=== PATIENT | male | born 1965 | race Caucasian/White ===

== ENCOUNTER 2021-06-01 08:53 | Inpatient (IN) | payer OTHER ==
[~2021-06-01] VITALS: Ht 193 cm; Wt 227.2 kg
[2021-06-01] VITALS (185 sets, daily range): BP systolic 62–216; BP diastolic 30–185
--- NOTE | ~2021-06-01 | PROC ---
[address] [address] PROCEDURE REPORT Name: WALLACEFLORENCIA ANASTACIO Room: [address] IN M.R.#: [id number] Admission: 06/01/21 Attend Phys: Radha Hernandez MD Discharge: 06/22/21 Date of : 63 Report #: [id number] THIS REPORT FOR: cc: Rajesh Hearn Kevin E. DO [facility],Medical Records Staff ~ For GI report, please see the Provation report in Perceptive 7 content. By: 0654Medical Records Staff MIKI /SIMA
[2021-06-01 09:10] LABS: ABSOLUTE BASOPHILS 0.1 thou/uL (0.0-0.2); ABSOLUTE LYMPHOCYTES 1.9 thou/uL (0.8-5.3); ABSOLUTE MONOCYTES 1.6 thou/uL (0.0-1.2); ABSOLUTE NEUTROPHILS 13.5 thou/uL (1.6-8.1); BASOPHILS 0.7 %; EOSINOPHILS 0.2 %; HEMATOCRIT 38.3 % (42.0-52.0); HEMOGLOBIN 12.4 gm/dL (14.0-18.0); LYMPHOCYTES 11.2 %; MCH 27.5 pg (26.0-34.0); MCHC 32.5 g/dL (28.0-37.0); MCV 84.7 fL (80.0-100.0); MONOCYTES 9.1 %; NUCLEATED RBCS 0 /100WBC; PLATELET COUNT* 375 thou/uL (150-400); POLYS 78.8 %; RBC 4.52 mil/uL (4.50-6.00); RDW-CV 15.2 % (10.5-14.5); WBC 17.2 thou/uL (4.0-11.0)
[2021-06-01 09:23] LABS: CALCIUM 9.1 mg/dL (8.5-10.1); CREATININE 3.5 mg/dL (0.6-1.3); POTASSIUM 4.2 mmol/L (3.5-5.1)
[2021-06-01 09:36] LABS: ALBUMIN 2.6 g/dL (3.4-5.0); CK-MB MASS 3.9 ng/mL (<0.5-3.6); TOTAL BILIRUBIN 1.4 mg/dL (<0.1-1.0); TOTAL PROTEIN 7.2 g/dL (6.4-8.2)
[2021-06-01] MEDS ORDERED: ASA81BEC PO (10:31)
[2021-06-01] MEDS ORDERED: BACITRACIN1 EACH TOP (10:34)
[2021-06-01] MEDS ORDERED: FLEXERIL PO (10:35)
[2021-06-01] MEDS ORDERED: CETIRIZINE HCL5 MG PO (10:35)
[2021-06-01] MEDS ORDERED: DIAZEPAM 5 MG5 MG PO (10:50)
--- NOTE | 2021-06-01 10:51 | EKG ---
[place] [address] ELECTROCARDIOGRAM REPORT Name: GONSALEZFLORENCIA Room: [facility]#: [id number] Admission: 06/01/21 Attend Phys: Discharge: Date of : 63 Date of Service: 06/01/21 0857 Report #: [id number] THIS REPORT FOR: //name// [facility] ED Test Date: 2021-06-01 Test Time: 08:57:01 Pat Name: FLORENCIA GONSALEZ Department: Room: Gender: Room Maid: : 1965 Requested By: Sid Etienne Order Number: [id number] MD: Terry Robles Measurements Intervals [place] Rate: 135 P: 63 TN: 152 QRS: -49 QRSD: 116 T: 65 QT: 305 QTc: 458 Interpretive Statements Sinus tachycardia with occasional PACs Nonspecific interventricular conduction delay with left axis deviation No previous ECG available for comparison Electronically Signed On 06-01-2021 10:51:21 CDT by Terry Robles [email or web address] <ELECTRONICALLY SIGNED> By: Terry Robles MD, [facility] 06/01/21 1051 0857 0857 Terry Robles MD, [facility] /EPI
[2021-06-01 12:15] LABS: PCO2 35.2 mmHg (35.0-45.0); pH 7.346 (7.340-7.450)
[2021-06-01 12:17] LABS: PO2 264.4 mmHg (75.0-100.0)
[2021-06-01 12:47] LABS: URINE BLOOD NEGATIVE (Negative); URINE CLARITY CLEAR; URINE COLOR YELLOW; URINE GLUCOSE-RANDOM TRACE (Negative); URINE KETONES TRACE (Negative); URINE LEUKOCYTES-REFLEX NEGATIVE (Negative); URINE PROTEIN 1+ (Negative); URINE SPECIFIC GRAVITY >= 1.030 (1.005-1.030)
[2021-06-01] MEDS ORDERED: APAP W/CODEINE1 TA2 PO (12:56)
[2021-06-01] MEDS ORDERED: NORCO5 PO (12:57)
[2021-06-01] MEDS ORDERED: FUROSEMIDE 40 M40 MG PO (12:57)
[2021-06-01] MEDS ORDERED: DULCOLAX STOOL100 M1 PO (12:57)
[2021-06-01] MEDS ORDERED: NEURONTIN300 MG PO (12:57)
[2021-06-01] MEDS ORDERED: IPRATROPIUM BRO30 ML INH (12:58)
[2021-06-01] MEDS ORDERED: KEFLEX750 MG PO (12:58)
[2021-06-01] MEDS ORDERED: PRINIVIL20 MG PO (12:59)
[2021-06-01] MEDS ORDERED: SUPER THERAVIT1 EACH PO (12:59)
[2021-06-01] MEDS ORDERED: MECLIZINE HCL25 M1 PO (12:59)
[2021-06-01] MEDS ORDERED: MOBIC7.5 MG PO (12:59)
[2021-06-01] MEDS ORDERED: ONDANSETRON ODT4 MG PO (13:00)
[2021-06-01] MEDS ORDERED: EFFER-K 10 MEQ10 ME1 PO (13:01)
[2021-06-01] MEDS ORDERED: SIMVASTATIN80 MG PO (13:02)
[2021-06-01] MEDS ORDERED: TERBINAFINE HC250 MG PO (13:03)
[2021-06-01 13:20] LABS: ICTOTEST (BILI CONFIRMATORY) Negative (Negative); URINE BILIRUBIN 2+ (Negative); URINE NITRITE-REFLEX POSITIVE (Negative)
[2021-06-01 13:27] LABS: SQUAMOUS 0-3 Few /LPF (0-3); URINE RBC 0-2 Rare /HPF (0-2); URINE WBC-REFLEX None Seen /HPF (0-5)
[2021-06-01 13:28] LABS: BACTERIA-REFLEX 1-9 Few /HPF (None Seen); CASTS None Seen /LPF (None Seen); CRYSTALS None Seen /LPF (None Seen)
[2021-06-01 18:19] LABS: BE -7.8 mmol/L (-2 to +3); PCO2 36.3 mmHg (35.0-45.0); PO2 94.9 mmHg (75.0-100.0); pH 7.307 (7.340-7.450)
[2021-06-01 18:47] LABS: ABSOLUTE LYMPHOCYTES 1.3 thou/uL (0.8-5.3); LYMPHOCYTES 9.1 %
[2021-06-01 18:51] LABS: ABSOLUTE BASOPHILS 0.1 thou/uL (0.0-0.2); ABSOLUTE EOSINOPHILS 0.1 thou/uL (0.0-0.7); ABSOLUTE MONOCYTES 1.9 thou/uL (0.0-1.2); ABSOLUTE NEUTROPHILS 11.1 thou/uL (1.6-8.1); BASOPHILS 0.7 %; EOSINOPHILS 0.8 %; HEMATOCRIT 35.5 % (42.0-52.0); HEMOGLOBIN 11.6 gm/dL (14.0-18.0); MCH 28.1 pg (26.0-34.0); MCHC 32.6 g/dL (28.0-37.0); MCV 86.2 fL (80.0-100.0); MONOCYTES 13.1 %; MPV 8.1 fl. (7.2-11.1); NUCLEATED RBCS 0 /100WBC; POLYS 76.3 %; RBC 4.12 mil/uL (4.50-6.00); RDW-CV 15.6 % (10.5-14.5); WBC 14.6 thou/uL (4.0-11.0)
[2021-06-01 18:53] LABS: PLATELET COUNT* 286 thou/uL (150-400)
[2021-06-01 18:59] LABS: CALCIUM 7.5 mg/dL (8.5-10.1); CREATININE 4.2 mg/dL (0.6-1.3)
[2021-06-01 19:03] LABS: ALBUMIN 2.4 g/dL (3.4-5.0); MAGNESIUM 1.2 mg/dL (1.8-2.4); TOTAL BILIRUBIN 0.8 mg/dL (<0.1-1.0); TOTAL PROTEIN 6.1 g/dL (6.4-8.2)
[2021-06-01 19:10] LABS: INR 1.3; PROTIME 13.6 Seconds (9.20-11.50)
--- NOTE | 2021-06-01 22:17 | CON ---
[address] [address] CONSULTATION Name: FLORENCIA GONSALEZ Room: [address] IN M.R.#: [id number] Admission: 06/01/21 Attend Phys: Radha Hernandez MD Discharge: Date of : 63 Report #: [id number] THIS REPORT FOR: cc: Rajesh Hearn Kevin E. DO Pervez, Adeel MD ~ DATE OF CONSULTATION: 06/01/2021 REQUESTING PHYSICIAN: Consult has been requested by Dr. Hernandez. INDICATION FOR CONSULTATION: Ventilator management. HISTORY OF PRESENT ILLNESS: This is a 55-year-old gentleman. He is already endotracheally intubated and therefore, I do not have detailed information available. Apparently, the patient was brought here from [facility] with altered mental status, reported to have a high-grade fever and being short of breath. The patient has recently had a right knee surgery performed. The patient's axillary temperature on arrival was 102 degrees Fahrenheit. He also was hypoglycemic with a blood glucose of 30. Also, he is in shock. Currently, the patient is on high dose Levophed at 27 mcg per minute and is maintaining blood pressure with it. He is currently sedated with propofol at 40 as well. The patient is ventilating and oxygenating adequately; however, he is bronchospastic on my exam. The patient is tachycardic. He is on the ventilator and therefore is unable to provide a further history or review of systems. PAST MEDICAL HISTORY: Morbid obesity, body mass index is 61, recent right knee surgery, details not available. SOCIAL HISTORY: Unknown. FAMILY HISTORY: Unknown. HOME MEDICATIONS: Unknown. ALLERGIES: Unknown. PHYSICAL EXAMINATION: GENERAL: He is tachycardic. VITAL SIGNS: Heart rate is 120, respiratory rate was around 30, blood pressure was 100/67. He was saturating 100%. He is on a tidal volume of 650 with an AC rate of 18, PEEP is 5, 50% FiO2. He has a temperature of 37.0. HEENT: Head is normocephalic and atraumatic. Pupils are equal and reactive. There is an endotracheal tube, is in good position. NECK: Does not show raised JVP, asymmetry, mass or lymph nodes. CHEST: Symmetrical expansion on inspection and palpation. On auscultation, [place] [address] CONSULTATION Name: FLORENCIA GONSALEZ Room: [address]#: [id number] Admission: 06/01/21 Attend Phys: Radha Hernandez MD Discharge: Date of : 63 Report #: [id number] there are loud inspiratory as well as expiratory wheezes heard bilaterally. HEART: Regular, tachycardia noted. ABDOMEN: Mildly distended, nontender. EXTREMITIES: Lower extremities do show 1+ edema bilaterally. There is evidence of recent surgery and warmth on the right knee. There is evidence of chronic venous insufficiency and there are some ulcers present in the calves bilaterally. SKIN: Dry and intact. NEUROLOGIC: Did move all extremities to stimuli; however, it is limited due to sedation. DIAGNOSTIC DATA: The patient's chest x-ray is reviewed. It shows atelectasis at the right lung base. I do not see any significant pulmonary vascular congestion or infiltrate. The atelectasis was not present on the first chest x-ray and is present on the 2nd. The patient's lab work, which shows acute renal failure in [facility] reviewed. Arterial blood gas, which shows adequate oxygenation in [facility] reviewed. COVID-19 screen is negative. ASSESSMENT AND PLAN: 1. Acute respiratory failure secondary to septic shock. We will continue current ventilator settings. Continue to titrate FiO2. We may be able to decrease further. Recommend starting a fentanyl drip, also starting p.r.n. Versed. Once these are started, we may be able to cut back on propofol, if the patient remains significantly hypotensive, then I will later discontinue propofol and consider adding alternate agents if necessary. 2. Septic shock/recent knee surgery. I understand the Orthopedic Surgery is considering the knee to be the possible etiology of the sepsis. If this is the case, then while he is high risk for surgery due to septic shock, we may need to proceed. I would defer to the Orthopedic Surgery Service. Meanwhile, I agree with fluid resuscitation as it is currently underway. I understand he is receiving the 7th liter of fluid now. I will give him some albumin as well. We will switch over his antibiotics considering his renal failure to linezolid and Zosyn. 3. Bronchospasm. He is significantly tachycardic; therefore, I ordered Solu-Medrol. If heart rate is better, I will give him nebulized bronchodilators as well. 4. Morbid obesity/obstructive sleep apnea. He appears to have underlying obstructive sleep apnea. He will need a BiPAP whenever he is extubated. 5. Hypoglycemia. This is noted on admission. Recommend watching blood glucoses closely. 6. Chronic venous insufficiency. Down the line, we will consider obtaining venous Dopplers and a 2D echo as well. 7. Acute renal failure. See discussion above. 8. Hemodynamic monitoring. I would recommend placing an A-line. The patient [address] [id number] CONSULTATION Name: FLORENCIA GONSALEZ Room: [address]#: [id number] Admission: 06/01/21 Attend Phys: Radha Hernandez MD Discharge: Date of : 63 Report #: [id number] already has a central line. The patient is critically ill at this time. Total time spent providing critical care to this patient today exceeds 45 minutes. <ELECTRONICALLY SIGNED> By: Barrie Paiz MD 06/01/21 2217 1538 2022Asyeda Paiz MD /nt
[2021-06-02] VITALS (20 sets, daily range): BP systolic 84–151; BP diastolic 54–83
[2021-06-02 02:48] LABS: HEMATOCRIT 35.8 % (42.0-52.0); HEMOGLOBIN 11.4 gm/dL (14.0-18.0); MCHC 31.8 g/dL (28.0-37.0); MPV 7.8 fl. (7.2-11.1); NUCLEATED RBCS 0 /100WBC; PLATELET COUNT* 293 thou/uL (150-400); RBC 4.21 mil/uL (4.50-6.00); RDW-CV 15.7 % (10.5-14.5); WBC 11.5 thou/uL (4.0-11.0)
[2021-06-02 03:02] LABS: APTT 31.8 Seconds (25.0-31.3); INR 1.3; PROTIME 13.5 Seconds (9.20-11.50)
[2021-06-02 03:14] LABS: PHOSPHORUS* 4.2 mg/dL (2.5-4.9)
[2021-06-02 03:48] LABS: CALCIUM 8.1 mg/dL (8.5-10.1); CREATININE 3.5 mg/dL (0.6-1.3); MAGNESIUM 1.9 mg/dL (1.8-2.4); POTASSIUM 4.7 mmol/L (3.5-5.1)
[2021-06-02 04:06] LABS: ABSOLUTE LYMPHOCYTES 0.2 thou/uL (0.8-5.3); ABSOLUTE MONOCYTES 0.3 thou/uL (0.0-1.2); ABSOLUTE NEUTROPHILS 10.9 thou/uL (1.6-8.1)
[2021-06-02 04:07] LABS: ANISOCYTOSIS Occasional; PLATELET ESTIMATE ADEQUATE
[2021-06-02 08:00] LABS: PCO2 34.8 mmHg (35.0-45.0); PO2 71.3 mmHg (75.0-100.0); pH 7.417 (7.340-7.450)
--- NOTE | 2021-06-02 13:40 | 2DMMODE ---
[place] [address] 2 D/M-MODE ECHOCARDIOGRAM Name: FLORENCIA GONSALEZ Room: [address] IN [facility]#: [id number] Admission: 06/01/21 Attend Phys: Radha Hernandez, Discharge: Date of : 63 Date of Service: 06/02/21 1339 Report #: [id number] THIS REPORT FOR: cc: Rajesh Hearn,Rajesh Mack,Mitchel Helton MD [facility] ~ APPROVED REPORT Study performed: 06/02/2021 10:05:31 EXAM: Comprehensive 2D, Doppler, and color-flow Echocardiogram Patient Location: In-Patient Room #: 004 Status: routine BSA: 3.27 HR: 72 bpm BP: 84/70 mmHg Rhythm: NSR Other Information Technically limited study due to inability to position patient, patient on ventilator, body habitus. Indications Sepsis Dyspnea Echo Enhancing Agent Indication: Endocardial border delineation Agent(s) / Amount(s) Used: Optison 3 cc 2D Dimensions IVSd: 12.03 (7-11mm) LVOT Diam: 24.96 (18-24mm) LVDd: 57.80 mm PWd: 11.51 (7-11mm) Ascending Ao: 34.27 (22-36mm) LVDs: 38.43 (25-40mm) Aortic Root: 36.02 mm Volumes Left Atrial Volume (Systole) LA ESV Index: 19.30 mL/m2 Aortic Valve AoV Peak Thierno.: 1.32 m/[place] [address] 2 D/M-MODE ECHOCARDIOGRAM Name: FLORENCIA GONSALEZ Room: [address] IN [facility]#: [id number] Admission: 06/01/21 Attend Phys: Radha Hernandez, Discharge: Date of : 63 Date of Service: 06/02/21 1339 Report #: [id number] AO Peak Gr.: 6.97 mmHg LVOT Max P.52 mmHg AO Mean Gr.: 4.12 mmHg LVOT Mean P.48 mmHg LVOT Max V: 0.79 m/s AO V2 VTI: 22.68 cm LVOT Mean V: 0.58 m/s FELIPE (VTI): 3.11 cm2 LVOT V1 VTI: 14.42 cm Mitral Valve E/A Ratio: 0.70 MV Decel. Time: 310.79 ms MV E Max Thierno.: 0.51 m/s MV PHT: 90.13 ms MVA (PHT): 2.44 cm2 TDI E/Lateral E': 6.38 E/Medial E': 7.29 Medial E' Thierno.: 0.07 m/s Lateral E' Thierno.: 0.08 m/s Pulmonary Valve PV Peak Thierno.: 0.92 m/s PV Peak Gr.: 3.36 mmHg Left Ventricle The left ventricle is normal size. There is normal LV segmental wall motion. Mild concentric left ventricular hypertrophy. Left ventricular systolic function is normal. LVEF is 60-65%. Grade I - abnormal relaxation pattern. Right Ventricle The right ventricle is normal size. The right ventricular systolic function is normal. Atria The left atrium size is normal. The right atrium size is normal. Aortic Valve The aortic valve is normal in structure. No aortic regurgitation is present. There is no aortic valvular stenosis. Mitral Valve The mitral valve is normal in structure. Trace mitral regurgitation. No evidence of mitral valve stenosis. Tricuspid Valve The tricuspid valve is normal in structure. Unable to assess PA pressure. Trace [place] [address] 2 D/M-MODE ECHOCARDIOGRAM Name: FLORENCIA GONSALEZ Room: [address]#: [id number] Admission: 06/01/21 Attend Phys: Radha Hernandez, Discharge: Date of : 63 Date of Service: 06/02/21 1339 Report #: [id number] Pulmonic Valve The pulmonary valve is normal in structure. There is no pulmonic valvular regurgitation. Great Vessels The aortic root is normal in size. IVC is normal in size and collapses >50% with inspiration. Pericardium There is no pericardial effusion. Left pleural effusion. <Conclusion> The left ventricle is normal size. Mild concentric left ventricular hypertrophy. Left ventricular systolic function is normal. LVEF is 60-65%. Grade I - abnormal relaxation pattern. There is normal LV segmental wall motion. Trace mitral regurgitation. IVC is normal in size and collapses >50% with inspiration. <ELECTRONICALLY SIGNED> By: Mitchel Jones MD, FACC 06/02/21 1339 1339 1339 Mitchel Jones MD, FACC /INF
[2021-06-03] VITALS (24 sets, daily range): BP systolic 114–152; BP diastolic 90–135
[2021-06-03 04:25] LABS: ABSOLUTE LYMPHOCYTES 0.5 thou/uL (0.8-5.3); ABSOLUTE MONOCYTES 0.6 thou/uL (0.0-1.2); ABSOLUTE NEUTROPHILS 10.9 thou/uL (1.6-8.1); BASOPHILS 0.2 %; HEMATOCRIT 33.4 % (42.0-52.0); HEMOGLOBIN 10.9 gm/dL (14.0-18.0); LYMPHOCYTES 4.1 %; MCH 27.5 pg (26.0-34.0); MCHC 32.5 g/dL (28.0-37.0); MCV 84.4 fL (80.0-100.0); MONOCYTES 5.4 %; MPV 8.4 fl. (7.2-11.1); NUCLEATED RBCS 0 /100WBC; PLATELET COUNT* 283 thou/uL (150-400); POLYS 90.3 %; RBC 3.96 mil/uL (4.50-6.00); RDW-CV 15.3 % (10.5-14.5); WBC 12.1 thou/uL (4.0-11.0)
[2021-06-03 05:10] LABS: ALBUMIN 2.3 g/dL (3.4-5.0); CALCIUM 8.4 mg/dL (8.5-10.1); MAGNESIUM 2.2 mg/dL (1.8-2.4); PHOSPHORUS* 5.3 mg/dL (2.5-4.9); POTASSIUM 4.5 mmol/L (3.5-5.1); TOTAL BILIRUBIN 0.5 mg/dL (<0.1-1.0); TOTAL PROTEIN 6.8 g/dL (6.4-8.2)
[2021-06-03 05:14] LABS: CREATININE 2.5 mg/dL (0.6-1.3)
[2021-06-03 05:23] LABS: PHOSPHORUS* 5.5 mg/dL (2.5-4.9)
[2021-06-03 11:27] LABS: BE -1.6 mmol/L (-2 to +3); PCO2 39.5 mmHg (35.0-45.0); PO2 83.4 mmHg (75.0-100.0); pH 7.386 (7.340-7.450)
--- NOTE | 2021-06-03 11:43 | CON ---
[address] [address] CONSULTATION Name: FLORENCIA GONSALEZ Room: [address] IN M.R.#: [id number] Admission: 06/01/21 Attend Phys: Radha Hernandez MD Discharge: Date of : 63 Report #: [id number] THIS REPORT FOR: cc: Rajesh Hearn Kevin E. DO Khan, Abid R. MD ~ DATE OF CONSULTATION: 06/02/2021 NEPHROLOGY CONSULTATION CONSULTING PHYSICIAN: Radha Hernandez MD REASON FOR CONSULTATION: Acute kidney injury. HISTORY OF PRESENT ILLNESS: A 55-year-old gentleman who was admitted with a septic knee and septic shock, was on 2 pressors at one point and had some hypotension. I was asked to see him because his creatinine had risen from 3.5 on admission to 4.2 and he had significantly reduced urine output. He was started on antibiotic as well as vasopressor support, seen by Surgery and seems to be doing much better today. Also, he did have some hypoglycemia and responded well to dextrose and his IV fluids. He is currently off of vasopressors. His creatinine has come down somewhat to 3.5 and he has had excellent urine output. REVIEW OF SYSTEMS: Constitutional, psych, heme, eyes, ENT, respiratory, cardiac, GI, , endocrine, all negative except as documented above and as best as can be ascertained from chart review. PAST MEDICAL HISTORY: Morbid obesity, suspected obstructive sleep apnea, dyslipidemia and a presumed history of hypertension. He is on lisinopril as an outpatient. FAMILY HISTORY: Nonpertinent in this 55-year-old gentleman. SOCIAL HISTORY: Unknown if ever smoked. CURRENT MEDICATIONS: Reviewed. PHYSICAL EXAMINATION: VITAL SIGNS: Blood pressure is 139/83, pulse 103, respirations 22, temperature 37.8. GENERAL: No distress, intubated, sedated. EYES: Closed. EARS: Externally normal. CARDIOVASCULAR: [place] [address] CONSULTATION Name: FLORENCIA GONSALEZ Room: [address] IN ..#: [id number] Admission: 06/01/21 Attend Phys: Radha Hernandez MD Discharge: Date of : 63 Report #: [id number] LUNGS: Diminished. ABDOMEN: Soft, nontender. MUSCULOSKELETAL: Nontender. PSYCHIATRIC: Intubated and unable to fully evaluate at this time. LABORATORY DATA: White cell count 11.5, hemoglobin 11.4, platelets 293. Sodium 136, potassium 4.7, chloride 103, bicarbonate 19, BUN 23, creatinine 3.5, glucose 118, calcium 8.1. CK 6784. ASSESSMENT AND PLAN: 1. Acute kidney injury. Baseline creatinine is unknown. Admission creatinine was 3.5, up to 4.2. UA is noted. He is on Lasix, lisinopril, meloxicam as an outpatient, has septic knee, was on 2 vasopressors and elevated CK of 6700. 2. Septic right knee. 3. Morbid obesity. 4. Suspected obstructive sleep apnea. 5. Hypoalbuminemia with albumin of 2.6. 6. Elevated CK of 6800. Plan: Creatinine is better today. Excellent urine output. No indication for renal ultrasound at this time as it is unlikely to change clinical management. 7. Rhabdomyolysis could be secondary to propofol. No other medication is identified at this time. in the setting of a septic knee. CK will be rechecked in the morning. We will continue IV fluid. We will discontinue bicarbonate as he has a normal pH. Continue dextrose and IV fluids as he did have initial hypoglycemia. We will check lab again in the a.m. Case was discussed with ELEMENT BURNER as well as Dr. Paiz. Thank you for requesting my opinion in the care and management of this patient. <ELECTRONICALLY SIGNED> By: Val Roland MD 06/03/21 1143 1104 1305Acindy Roland MD /nt
[2021-06-04] VITALS (86 sets, daily range): BP systolic 107–177; BP diastolic 75–160
[2021-06-04 04:03] LABS: ABSOLUTE LYMPHOCYTES 0.6 thou/uL (0.8-5.3); ABSOLUTE MONOCYTES 0.8 thou/uL (0.0-1.2); ABSOLUTE NEUTROPHILS 9.6 thou/uL (1.6-8.1); EOSINOPHILS 0.1 %; HEMATOCRIT 33.5 % (42.0-52.0); HEMOGLOBIN 10.7 gm/dL (14.0-18.0); LYMPHOCYTES 5.6 %; MCH 27.2 pg (26.0-34.0); MCHC 31.9 g/dL (28.0-37.0); MCV 85.3 fL (80.0-100.0); MONOCYTES 7.5 %; MPV 8.3 fl. (7.2-11.1); NUCLEATED RBCS 0 /100WBC; PLATELET COUNT* 268 thou/uL (150-400); POLYS 86.8 %; RBC 3.93 mil/uL (4.50-6.00); RDW-CV 15.5 % (10.5-14.5)
[2021-06-04 04:12] LABS: ALBUMIN 2.2 g/dL (3.4-5.0); CREATININE 2.1 mg/dL (0.6-1.3); MAGNESIUM 2.3 mg/dL (1.8-2.4); POTASSIUM 4.4 mmol/L (3.5-5.1); TOTAL BILIRUBIN 0.3 mg/dL (<0.1-1.0); TOTAL PROTEIN 6.8 g/dL (6.4-8.2)
[2021-06-04 04:24] LABS: PREALBUMIN 11.1 mg/dL (18.0-35.7)
[2021-06-04 08:50] LABS: BE -3.3 mmol/L (-2 to +3); PCO2 39.7 mmHg (35.0-45.0); PO2 73.5 mmHg (75.0-100.0); pH 7.359 (7.340-7.450)
[2021-06-04 11:39] LABS: BE -4.4 mmol/L (-2 to +3); PO2 76.8 mmHg (75.0-100.0); pH 7.369 (7.340-7.450)
[2021-06-05] VITALS (42 sets, daily range): BP systolic 117–217; BP diastolic 73–204
[2021-06-05 06:41] LABS: ALBUMIN 2.1 g/dL (3.4-5.0); CALCIUM 8.1 mg/dL (8.5-10.1); CREATININE 1.6 mg/dL (0.6-1.3); POTASSIUM 4.8 mmol/L (3.5-5.1); TOTAL BILIRUBIN 0.4 mg/dL (<0.1-1.0); TOTAL PROTEIN 6.7 g/dL (6.4-8.2)
[2021-06-05 07:50] LABS: PLATELET ESTIMATE ADEQUATE
[2021-06-05 08:56] LABS: HEMATOCRIT 35.1 % (42.0-52.0); HEMOGLOBIN 11.2 gm/dL (14.0-18.0); MCH 27.3 pg (26.0-34.0); MCV 85.2 fL (80.0-100.0); MPV 8.2 fl. (7.2-11.1); PLATELET COUNT* 239 thou/uL (150-400); RBC 4.11 mil/uL (4.50-6.00); RDW-CV 15.6 % (10.5-14.5)
[2021-06-05 09:07] LABS: ABSOLUTE LYMPHOCYTES 0.8 thou/uL (0.8-5.3); ABSOLUTE MONOCYTES 0.4 thou/uL (0.0-1.2); ABSOLUTE NEUTROPHILS 10.6 thou/uL (1.6-8.1); WBC 11.8 thou/uL (4.0-11.0)
[2021-06-05 10:15] LABS: BE -0.1 mmol/L (-2 to +3); PCO2 41.1 mmHg (35.0-45.0); PO2 66.6 mmHg (75.0-100.0); pH 7.398 (7.340-7.450)
--- NOTE | 2021-06-05 10:31 | EKG ---
[place] [address] ELECTROCARDIOGRAM REPORT Name: FLORENCIA GONSALEZ Room: [address] ADM IN M.R.#: [id number] Admission: 06/01/21 Attend Phys: Radha Hernandez, Discharge: Date of : 63 Date of Service: 06/04/21 1256 Report #: [id number] THIS REPORT FOR: //name// [facility] Test Date: 2021-06-04 Test Time: 12:56:24 Pat Name: FLORENCIA GONSALEZ Department: Room: [address] Gender: M Nurse Practitioner Physician Assistant: CLARENCE : 1965 Requested By: Angelo South Order Number: [id number] Reading MD: Arden Malhotra Measurements Intervals [place] Rate: 73 P: 49 MO: 185 QRS: -26 QRSD: 120 T: 4 QT: 409 QTc: 451 Interpretive Statements Sinus rhythm Atrial premature complexes Nonspecific intraventricular conduction delay Compared to ECG 06/01/2021 08:57:01 Atrial premature complex(es) now present Sinus tachycardia no longer present Left-axis deviation no longer present Electronically Signed On 06-05-2021 10:31:15 CDT by Arden Malhotra [email or web address] <ELECTRONICALLY SIGNED> By: Arden Malhotra MD, FACC 06/05/21 1031 1256 1256 Arden Malhotra MD, [facility] /EPI
[2021-06-06] VITALS (44 sets, daily range): BP systolic 95–191; BP diastolic 62–130
[2021-06-06 05:27] LABS: ABSOLUTE MONOCYTES 0.7 thou/uL (0.0-1.2); BASOPHILS 0.4 %; HEMATOCRIT 37.6 % (42.0-52.0); HEMOGLOBIN 11.8 gm/dL (14.0-18.0); LYMPHOCYTES 9.3 %; MCH 26.6 pg (26.0-34.0); MCHC 31.5 g/dL (28.0-37.0); MCV 84.5 fL (80.0-100.0); MONOCYTES 6.8 %; MPV 7.9 fl. (7.2-11.1); NUCLEATED RBCS 1 /100WBC; PLATELET COUNT* 238 thou/uL (150-400); POLYS 83.5 %; RBC 4.44 mil/uL (4.50-6.00); RDW-CV 16.2 % (10.5-14.5); WBC 10.8 thou/uL (4.0-11.0)
[2021-06-06 05:44] LABS: CALCIUM 8.5 mg/dL (8.5-10.1); CREATININE 1.2 mg/dL (0.6-1.3); POTASSIUM 4.5 mmol/L (3.5-5.1)
[2021-06-06 09:45] LABS: BE -1.1 mmol/L (-2 to +3); PCO2 38.7 mmHg (35.0-45.0); pH 7.401 (7.340-7.450)
--- NOTE | 2021-06-06 10:06 | EKG ---
[place] [address] ELECTROCARDIOGRAM REPORT Name: FLORENCIA GONSALEZ Room: [address] ADM IN M.R.#: [id number] Admission: 06/01/21 Attend Phys: Radha Hernandez, Discharge: Date of : 63 Date of Service: 06/04/21 0109 Report #: [id number] THIS REPORT FOR: //name// [facility] Test Date: 2021-06-04 Test Time: 01:09:18 Pat Name: FLORENCIA GONSALEZ Department: Room: [address] Gender: M Auxiliary Engineer: [id number] : 1965 Requested By: Radha Hernandez Order Number: [id number] Reading MD: Arden Malhotra Measurements Intervals [place] Rate: 78 P: 51 WI: 189 QRS: -26 QRSD: 125 T: 4 QT: 407 QTc: 464 Interpretive Statements Sinus rhythm Atrial premature complex Baseline wander in lead(s) V6 Compared to ECG 06/01/2021 08:57:01 Atrial premature complex(es) now present Sinus tachycardia no longer present Electronically Signed On 06-06-2021 10:06:13 CDT by Arden Malhotra [email or web address] <ELECTRONICALLY SIGNED> By: Arden Malhotra MD, FAC 06/06/21 1006 8 8 Arden Malhotra MD, [facility] /EPI
--- NOTE | 2021-06-06 10:07 | EKG ---
[place] [address] ELECTROCARDIOGRAM REPORT Name: FLORENCIA GONSALEZ Room: [address] ADM IN M.R.#: [id number] Admission: 06/01/21 Attend Phys: Radha Hernandez, Discharge: Date of : 63 Date of Service: 06/04/21 0112 Report #: [id number] THIS REPORT FOR: //name// [facility] Test Date: 2021-06-04 Test Time: 01:12:17 Pat Name: FLORENCIA GONSALEZ Department: Room: [address] Gender: M Wind Development Director: JUANI : 1965 Requested By: Radha Hernandez Order Number: [id number] Reading MD: Arden Malhotra Measurements Intervals [place] Rate: 76 P: 53 SC: 188 QRS: -24 QRSD: 126 T: 5 QT: 416 QTc: 468 Interpretive Statements Sinus rhythm Multiple premature complexes, vent & supraven Compared to ECG 06/04/2021 01:09:18 pvc now seen Electronically Signed On 06-06-2021 10:07:26 CDT by Arden Malhotra [email or web address] <ELECTRONICALLY SIGNED> By: Arden Malhotra MD, [facility] 06/06/21 1007 011 1 Arden Malhotra MD, [facility] /EPI
--- NOTE | 2021-06-06 10:08 | EKG ---
[place] [address] ELECTROCARDIOGRAM REPORT Name: FLORENCIA GONSALEZ Room: [address] ADM IN M.R.#: [id number] Admission: 06/01/21 Attend Phys: Radha Hernandez, Discharge: Date of : 63 Date of Service: 06/04/212015 Report #: [id number] THIS REPORT FOR: //name// [facility] Test Date: 2021-06-04 Test Time: 20:16:01 Pat Name: FLORENCIA GONSALEZ Department: Room: [address] Gender: M Wireless Manager: [id number] : 1965 Requested By: Radha Hernandez Order Number: [id number] Reading MD: Arden Malhotra Measurements Intervals [place] Rate: 54 P: 53 RI: 184 QRS: -13 QRSD: 118 T: 12 QT: 432 QTc: 410 Interpretive Statements Sinus bradycardia Atrial premature complex Baseline wander in lead(s) I,III,aVL Compared to ECG 06/04/2021 12:56:24 no change Electronically Signed On 06-06-2021 10:08:27 CDT by Arden Malhotra [email or web address] <ELECTRONICALLY SIGNED> By: Arden Malhotra MD, FACC 06/06/21 1008 15 15 Arden Malhotra MD, FAC /EPI
--- NOTE | 2021-06-06 10:18 | EKG ---
[place] [address] ELECTROCARDIOGRAM REPORT Name: WALLACEFLORENCIAKARYN CHAVES Room: [address] ADM IN M.R.#: [id number] Admission: 06/01/21 Attend Phys: Radha Hernandez, Discharge: Date of : 63 Date of Service: 06/06/21 0954 Report #: [id number] THIS REPORT FOR: //name// [facility] Test Date: 2021-06-06 Test Time: 09:54:37 Pat Name: FLORENCIA GONSALEZ Department: Room: [address] Gender: Awilda Mems Device Scientist: MUNA : 1965 Requested By: Arden Malhotra Order Number: [id number] Jayne MD: Arden Malhotra Measurements Intervals [place] Rate: 90 P: 49 UT: 170 QRS: -31 QRSD: 116 T: 4 QT: 416 QTc: 509 Interpretive Statements Sinus 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
--- NOTE | 2021-06-06 15:48 | CON ---
[address] [address] CONSULTATION Name: FLORENCIA GONSALEZ Room: [address] IN M.Jimena.#: [id number] Admission: 06/01/21 Attend Phys: Radha Hernandez MD Discharge: Date of : 63 Report #: [id number] THIS REPORT FOR: cc: Rajesh Hearn,Arden Bermeo MD [facility] ~ cc: Rajesh Hearn DO DATE OF CONSULTATION: 06/04/2021 CARDIOLOGY CONSULTATION HISTORY OF PRESENT ILLNESS: The patient is a 55-year-old black male who I was asked to see in the ICU today after he was noted to have an abnormal ECG. The history is obtained from the current chart. There are no old records available. There are no family members available. The patient is currently sedated on the ventilator. He was brought to the Emergency Room by paramedics 4 days ago. He had been in assisted living after having surgery done on his right knee. He was confused and running fever. After admission, he was intubated. Central line and arterial line was placed. He was noted to have an abnormal ECG and Cardiology consultation was requested. PAST MEDICAL HISTORY: Significant for high blood pressure, high cholesterol, chronic kidney disease, morbid obesity. MEDICATIONS: On admission included aspirin, Flexeril, Valium, Lasix, Neurontin, lisinopril, simvastatin. ALLERGIES: He has no known drug allergies. FAMILY HISTORY: Cannot be obtained. SOCIAL HISTORY: Unknown at this time. PHYSICAL EXAMINATION: GENERAL: Revealed a large, obese black male, lying in bed, on the ventilator. VITAL SIGNS: He had a blood pressure of 130/70, pulse is 80 and regular. HEENT: He was anicteric. Conjunctivae pink. Mucous membranes moist. NECK: Veins difficult to assess due to obesity. CHEST: Clear to auscultation. CARDIAC: Irregular rhythm. Occasional prematurity. ABDOMEN: Obese. EXTREMITIES: Had trace edema. Dorsalis pedis pulse 2+ bilaterally. SKIN: Cool and dry. NEUROLOGIC: [place] [address] CONSULTATION Name: FLORENCIA GONSALEZ Room: [address]#: [id number] Admission: 06/01/21 Attend Phys: Radha Hernandez MD Discharge: Date of : 63 Report #: [id number] LABORATORY DATA: His ECG on admission showed sinus tachycardia, occasional PAC and PVC, but no significant ST-T wave changes. He had an echocardiogram this admission showed normal left ventricular function. His lab work on admission, BUN 35, creatinine 2.1. His albumin is 2.2. High sensitivity troponin 56. BNP 716. White blood cell count 11.0, hematocrit 33.5. IMPRESSION AND RECOMMENDATIONS: 1. PACs and PVCs. I would correct electrolytes. I would not recommend medications at this time. 2. Hypotension. The patient on pressors. 3. Respiratory distress. The patient is intubated. 4. Morbid obesity. 5. Hypertension. I would hold blood pressure medications at this time. 6. Hyperlipidemia. The patient is on a statin drug. 7. Acute kidney injury. The patient followed by Nephrology. <ELECTRONICALLY SIGNED> By: Arden Malhotra MD, FACC 06/06/21 1548 1119 [id number] Genoveva Malhotra MD, FACC /nt
[2021-06-07] VITALS (29 sets, daily range): BP systolic 120–211; BP diastolic 78–172
[2021-06-07 08:19] LABS: ABSOLUTE EOSINOPHILS 0.2 thou/uL (0.0-0.7); ABSOLUTE LYMPHOCYTES 2.2 thou/uL (0.8-5.3); ABSOLUTE MONOCYTES 1.7 thou/uL (0.0-1.2); ABSOLUTE NEUTROPHILS 7.9 thou/uL (1.6-8.1); BASOPHILS 0.3 %; EOSINOPHILS 1.9 %; HEMATOCRIT 38.6 % (42.0-52.0); HEMOGLOBIN 12.2 gm/dL (14.0-18.0); LYMPHOCYTES 18.5 %; MCH 27.5 pg (26.0-34.0); MCHC 31.5 g/dL (28.0-37.0); MCV 87.1 fL (80.0-100.0); MONOCYTES 13.9 %; MPV 7.8 fl. (7.2-11.1); NUCLEATED RBCS 1 /100WBC; PLATELET COUNT* 218 thou/uL (150-400); POLYS 65.4 %; RBC 4.43 mil/uL (4.50-6.00); RDW-CV 15.9 % (10.5-14.5); WBC 12.1 thou/uL (4.0-11.0)
[2021-06-07 08:42] LABS: ALBUMIN 2.1 g/dL (3.4-5.0); CALCIUM 8.4 mg/dL (8.5-10.1); CREATININE 1.2 mg/dL (0.6-1.3); POTASSIUM 4.2 mmol/L (3.5-5.1); TOTAL BILIRUBIN 0.5 mg/dL (<0.1-1.0); TOTAL PROTEIN 6.3 g/dL (6.4-8.2)
[2021-06-08] VITALS (20 sets, daily range): BP systolic 123–161; BP diastolic 60–96
[2021-06-08 03:33] LABS: ABSOLUTE EOSINOPHILS 0.2 thou/uL (0.0-0.7); ABSOLUTE LYMPHOCYTES 1.8 thou/uL (0.8-5.3); ABSOLUTE MONOCYTES 1.5 thou/uL (0.0-1.2); ABSOLUTE NEUTROPHILS 8.1 thou/uL (1.6-8.1); BASOPHILS 0.3 %; EOSINOPHILS 1.4 %; HEMATOCRIT 36.7 % (42.0-52.0); HEMOGLOBIN 11.7 gm/dL (14.0-18.0); LYMPHOCYTES 15.2 %; MCH 26.9 pg (26.0-34.0); MCHC 31.8 g/dL (28.0-37.0); MCV 84.7 fL (80.0-100.0); MONOCYTES 12.8 %; MPV 7.7 fl. (7.2-11.1); NUCLEATED RBCS 1 /100WBC; PLATELET COUNT* 229 thou/uL (150-400); POLYS 70.3 %; RBC 4.34 mil/uL (4.50-6.00); RDW-CV 15.8 % (10.5-14.5); WBC 11.5 thou/uL (4.0-11.0)
[2021-06-08 03:53] LABS: ALBUMIN 1.9 g/dL (3.4-5.0); CALCIUM 8.1 mg/dL (8.5-10.1); MAGNESIUM 1.5 mg/dL (1.8-2.4); POTASSIUM 4.1 mmol/L (3.5-5.1); TOTAL BILIRUBIN 0.4 mg/dL (<0.1-1.0); TOTAL PROTEIN 5.8 g/dL (6.4-8.2)
[2021-06-09 00:09] VITALS: BP 125/69
[2021-06-09 04:02] VITALS: BP 134/60
[2021-06-09 04:29] LABS: HEMATOCRIT 37.7 % (42.0-52.0); HEMOGLOBIN 12.2 gm/dL (14.0-18.0); MCH 27.4 pg (26.0-34.0); MCHC 32.3 g/dL (28.0-37.0); MCV 84.7 fL (80.0-100.0); MPV 7.9 fl. (7.2-11.1); NUCLEATED RBCS 1 /100WBC; PLATELET COUNT* 271 thou/uL (150-400); RBC 4.45 mil/uL (4.50-6.00); RDW-CV 15.6 % (10.5-14.5); WBC 12.5 thou/uL (4.0-11.0)
[2021-06-09 05:18] LABS: ALBUMIN 2.1 g/dL (3.4-5.0); CALCIUM 8.3 mg/dL (8.5-10.1); MAGNESIUM 1.8 mg/dL (1.8-2.4); POTASSIUM 3.3 mmol/L (3.5-5.1); TOTAL BILIRUBIN 0.8 mg/dL (<0.1-1.0); TOTAL PROTEIN 6.3 g/dL (6.4-8.2)
[2021-06-09 05:59] LABS: ABSOLUTE EOSINOPHILS 0.1 thou/uL (0.0-0.7); ABSOLUTE LYMPHOCYTES 3.3 thou/uL (0.8-5.3); ABSOLUTE MONOCYTES 1.5 thou/uL (0.0-1.2); ABSOLUTE NEUTROPHILS 7.6 thou/uL (1.6-8.1); ANISOCYTOSIS 1+; PLATELET ESTIMATE ADEQUATE; POIKILOCYTOSIS 1+
[2021-06-09 08:00] VITALS: BP 108/50
[2021-06-09 12:14] VITALS: BP 124/72
[2021-06-09 15:27] VITALS: BP 124/80
[2021-06-09 20:54] VITALS: BP 118/72
[2021-06-10] VITALS (12 sets, daily range): BP systolic 110–142; BP diastolic 74–88
[2021-06-10 04:13] LABS: ABSOLUTE BASOPHILS 0.1 thou/uL (0.0-0.2); ABSOLUTE EOSINOPHILS 0.2 thou/uL (0.0-0.7); ABSOLUTE LYMPHOCYTES 2.6 thou/uL (0.8-5.3); ABSOLUTE MONOCYTES 1.4 thou/uL (0.0-1.2); BASOPHILS 0.9 %; EOSINOPHILS 1.4 %; HEMATOCRIT 34.2 % (42.0-52.0); HEMOGLOBIN 11.3 gm/dL (14.0-18.0); LYMPHOCYTES 19.6 %; MCH 27.8 pg (26.0-34.0); MCHC 33.1 g/dL (28.0-37.0); MONOCYTES 10.8 %; MPV 7.6 fl. (7.2-11.1); NUCLEATED RBCS 1 /100WBC; PLATELET COUNT* 271 thou/uL (150-400); POLYS 67.3 %; RBC 4.07 mil/uL (4.50-6.00); RDW-CV 15.9 % (10.5-14.5); WBC 13.4 thou/uL (4.0-11.0)
[2021-06-10 04:32] LABS: ALBUMIN 1.9 g/dL (3.4-5.0); POTASSIUM 3.8 mmol/L (3.5-5.1); TOTAL BILIRUBIN 0.7 mg/dL (<0.1-1.0); TOTAL PROTEIN 6.1 g/dL (6.4-8.2)
[2021-06-10 18:27] LABS: CALCIUM 8.5 mg/dL (8.5-10.1); CREATININE 0.9 mg/dL (0.6-1.3); MAGNESIUM 1.8 mg/dL (1.8-2.4)
[2021-06-10 18:28] LABS: POTASSIUM 4.8 mmol/L (3.5-5.1)
[2021-06-11 04:01] VITALS: BP 150/78
[2021-06-11 08:00] VITALS: BP 128/75
[2021-06-11 12:00] VITALS: BP 155/89
[2021-06-11 16:00] VITALS: BP 119/74
[2021-06-11 20:09] VITALS: BP 152/77
[2021-06-12 00:32] VITALS: BP 144/64
[2021-06-12 04:17] VITALS: BP 159/72
[2021-06-12 12:00] VITALS: BP 141/87
[2021-06-12 16:00] VITALS: BP 173/74
[2021-06-12 20:29] VITALS: BP 151/80
[2021-06-13] VITALS (8 sets, daily range): BP systolic 137–168; BP diastolic 50–91
[2021-06-13 04:10] LABS: HEMATOCRIT 26.8 % (42.0-52.0); MCH 28.3 pg (26.0-34.0); MCHC 32.6 g/dL (28.0-37.0); RBC 3.08 mil/uL (4.50-6.00); RDW-CV 16.2 % (10.5-14.5); WBC 23.4 thou/uL (4.0-11.0)
[2021-06-13 04:29] LABS: HEMOGLOBIN 8.7 gm/dL (14.0-18.0)
[2021-06-13 04:37] LABS: ALBUMIN 2.1 g/dL (3.4-5.0); CALCIUM 7.9 mg/dL (8.5-10.1); CREATININE 0.9 mg/dL (0.6-1.3); MAGNESIUM 1.4 mg/dL (1.8-2.4); POTASSIUM 3.6 mmol/L (3.5-5.1); TOTAL BILIRUBIN 0.4 mg/dL (<0.1-1.0); TOTAL PROTEIN 6.2 g/dL (6.4-8.2)
[2021-06-13 11:28] LABS: HEMOGLOBIN 8.3 gm/dL (14.0-18.0); MCH 27.9 pg (26.0-34.0); MCHC 32.1 g/dL (28.0-37.0); MPV 7.7 fl. (7.2-11.1); RBC 2.99 mil/uL (4.50-6.00); RDW-CV 16.3 % (10.5-14.5); WBC 19.9 thou/uL (4.0-11.0)
--- NOTE | 2021-06-13 11:33 | EKG ---
[place] [address] ELECTROCARDIOGRAM REPORT Name: FLORENCIA GONSALEZ Room: [address] ADM IN M.R.#: [id number] Admission: 06/01/21 Attend Phys: Radha Hernandez, Discharge: Date of : 63 Date of Service: 06/10/211701 Report #: [id number] THIS REPORT FOR: //name// [facility] Test Date: 2021-06-10 Test Time: 17:02:26 Pat Name: FLORENCIA GONSALEZ Department: Room: [address] Gender: M Skin Grader: : 1965 Requested By: Radha Hernandez Order Number: [id number] Reading MD: Terry Robles Measurements Intervals [place] Rate: 163 P: 0 [place]: 47 QRS: -40 QRSD: 106 T: 240 QT: 288 QTc: 475 Interpretive Statements SVT at a rate of 163 with rare PVCs Compared to ECG 06/06/2021 09:54:37 Sinus rhythm no longer present Myocardial infarct finding still present Electronically Signed On 06-13-2021 11:33:13 CDT by Terry Robles [email or web address] <ELECTRONICALLY SIGNED> By: Terry Robles MD, [facility] 06/13/21 1133 01 170 Terry Rboles MD, [facility] /EPI
--- NOTE | 2021-06-13 11:36 | EKG ---
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 : 1965 Requested By: Marisela Barksdale Order Number: [id number] Reading MD: Terry Robles Measurements Intervals [place] Rate: 102 P: 50 MD: 165 QRS: -25 QRSD: 104 T: 107 QT: 334 QTc: 436 Interpretive Statements Fast sinus arrhythmia Probable left atrial enlargement Abnormal R-wave progression, late transition Inferior infarct, old Compared to ECG 06/10/2021 17:02:26 Sinus tachycardia no longer present Myocardial infarct finding still present Electronically Signed On 06-13-2021 11:36:14 CDT by Terry Robles [email or web address] <ELECTRONICALLY SIGNED> By: Terry Robles MD, FAC 06/13/21 1136 1018 1018 Terry Robles MD, [facility] /EPI
--- NOTE | 2021-06-13 12:53 | EKG ---
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 : 1965 Requested By: Marisela Barksdale Order Number: [id number] Reading MD: Mitchel Jones Measurements Intervals [place] Rate: 74 P: 31 DE: 179 QRS: -34 QRSD: 103 T: 38 QT: 448 QTc: 497 Interpretive Statements Sinus rhythm Atrial premature complex Inferior infarct, old Compared to ECG 06/11/2021 10:18:33 Atrial premature complex(es) now present Sinus arrhythmia no longer present Myocardial infarct finding still present Electronically Signed On 06-13-2021 12:53:35 CDT by Mitchel Jones [email or web address] <ELECTRONICALLY SIGNED> By: Mitchel Jones MD, FACC 06/13/21 1253 1105 1105 Mitchel Jones MD, FACC /EPI
[2021-06-13 16:49] LABS: HEMATOCRIT 26.5 % (42.0-52.0); HEMOGLOBIN 8.5 gm/dL (14.0-18.0); MCH 28.1 pg (26.0-34.0); MCHC 32.1 g/dL (28.0-37.0); MCV 87.3 fL (80.0-100.0); MPV 7.8 fl. (7.2-11.1); RBC 3.04 mil/uL (4.50-6.00); RDW-CV 16.3 % (10.5-14.5); WBC 20.1 thou/uL (4.0-11.0)
[2021-06-14 04:13] VITALS: BP 115/62
[2021-06-14 04:26] LABS: HEMOGLOBIN 8.1 gm/dL (14.0-18.0); MCV 88.6 fL (80.0-100.0)
[2021-06-14 04:29] LABS: HEMATOCRIT 25.6 % (42.0-52.0); MCH 28.2 pg (26.0-34.0); MCHC 31.9 g/dL (28.0-37.0); MPV 8.1 fl. (7.2-11.1); RBC 2.89 mil/uL (4.50-6.00); RDW-CV 16.5 % (10.5-14.5); WBC 19.9 thou/uL (4.0-11.0)
[2021-06-14 04:44] LABS: ALBUMIN 2.1 g/dL (3.4-5.0); CREATININE 0.8 mg/dL (0.6-1.3); MAGNESIUM 1.5 mg/dL (1.8-2.4); POTASSIUM 3.3 mmol/L (3.5-5.1); TOTAL BILIRUBIN 0.4 mg/dL (<0.1-1.0); TOTAL PROTEIN 6.1 g/dL (6.4-8.2)
[2021-06-14 08:55] VITALS: BP 113/59
[2021-06-14 16:00] VITALS: BP 112/59
[2021-06-14 20:44] VITALS: BP 118/66
[2021-06-14 23:47] VITALS: BP 125/59
[2021-06-15 03:44] VITALS: BP 141/65
[2021-06-15 04:58] LABS: HEMOGLOBIN 7.8 gm/dL (14.0-18.0); MCV 88.4 fL (80.0-100.0); WBC 13.4 thou/uL (4.0-11.0)
[2021-06-15 05:02] LABS: MCH 28.7 pg (26.0-34.0); MCHC 32.4 g/dL (28.0-37.0); MPV 8.5 fl. (7.2-11.1); RBC 2.71 mil/uL (4.50-6.00); RDW-CV 16.4 % (10.5-14.5)
[2021-06-15 05:37] LABS: ALBUMIN 2.1 g/dL (3.4-5.0); CALCIUM 7.8 mg/dL (8.5-10.1); CREATININE 0.8 mg/dL (0.6-1.3); MAGNESIUM 1.5 mg/dL (1.8-2.4); POTASSIUM 3.8 mmol/L (3.5-5.1); TOTAL BILIRUBIN 0.4 mg/dL (<0.1-1.0); TOTAL PROTEIN 6.2 g/dL (6.4-8.2)
[2021-06-15 08:00] VITALS: BP 131/74
--- NOTE | 2021-06-15 08:41 | EEG ---
[address] [address] EEG STUDY REPORT Name: FLORENCIA GONSALEZ Room: [address] IN M.R.#: [id number] Admission: 06/01/21 Attend Phys: Radha Hernandez MD Discharge: Date of : 63 Report #: [id number] THIS REPORT FOR: cc: Rajesh Hearn Kevin E. DO Khosla,Tim Linton MD ~ DATE OF SERVICE: 06/07/2021 This patient is being evaluated for altered mental status. EEG was done by placing the electrode by standard 10-20 system of electrode placement. Background activity in this patient's EEG is poorly formed and it appeared to be about 5-6 Hz and 15 microvolt. Photic stimulation is unremarkable. Throughout the record, no active epileptiform activity was noticed. IMPRESSION: This is a severely abnormal EEG because it is disorganized and poorly formed. That is a nonspecific abnormality which can occur with encephalopathy, effect of psychotropic medication, etc. Clinical correlation is recommended. <ELECTRONICALLY SIGNED> By: Tim Carl MD 06/15/21 0841 1434 1528Tim Carl MD /nt
--- NOTE | 2021-06-15 08:41 | CON ---
[address] [address] CONSULTATION Name: FLORENCIA GONSALEZ Room: [address] IN M.R.#: [id number] Admission: 06/01/21 Attend Phys: Radha Hernandez MD Discharge: Date of : 63 Report #: [id number] THIS REPORT FOR: cc: Rajesh Hearn Kevin E. DO Khosla, Parveen K. MD ~ DATE OF CONSULTATION: 06/06/2021 HISTORY OF PRESENT ILLNESS: This is a 55-year-old male patient who was evaluated by me for altered mental status. I talked to the nurse and reviewed the patient's record. This patient presently is being treated for septic shock. He suffered a knee injury. He went to the rehab and then had an infection and was admitted there. He also has C. difficile colitis and apparently has multiple other issues going on. His GFR was low, but it is becoming better. He became agitated and confused as I can tell from the chart and by talking to the nurses. He is being followed by multiple consultants during this admission. REVIEW OF SYSTEMS: A 14-point review of system was carried out. Apparently, he has acute renal failure. He had an infection of the right knee. He was admitted with profound hypotension, hypoxia as per my review of the record and H and P. Record indicates his blood sugar was about 30 when he came in and he had a high temperature. Even when he was admitted, he had altered mental status. He also had shortness of breath at that time. REVIEW OF SYSTEMS: A 14-point review of systems are from the record. He was on ventilator, but now he has been pretty sick. His kidney function appears to have improved. This is all the relevant 14-point review of systems I can get. PAST MEDICAL HISTORY: The patient appeared to be significant for hypertension. FAMILY HISTORY: Unavailable. SOCIAL HISTORY: One of the records says that the patient does not have a history of alcohol or substance abuse. PHYSICAL EXAMINATION: Limited. He is on Precedex drip. He did not respond to me at all. His pupils are small, but did not react. He has no reflexes. He has no meningeal sign. Thus, all the neurological examination is possible. He is a very well-developed individual. VITAL SIGNS: His blood pressure is maintained now, it is 156/99, pulse is 85. LABORATORY DATA: His white count is 10.8. GFR is back to normal. His ____ is also normal. IMPRESSION AND PLAN: This patient most likely is encephalopathic. He has [address] [place] [address] CONSULTATION Name: FLORENCIA GONSALEZ Room: [address] ADM IN .R.#: [id number] Admission: 06/01/21 Attend Phys: Radha Hernandez MD Discharge: Date of : 63 Report #: [id number] numerous problems which can cause encephalopathy. We will get an EEG done, but if he is considered stable by other consultants, I think it will be desirable to get a CT scan of the head also done because no imaging studies are available. I will try to reach the family. Thank you very much for this referral. <ELECTRONICALLY SIGNED> By: Tim Carl MD 06/15/21 0841 1927 2315Tim Carl MD /nt
[2021-06-15 12:00] VITALS: BP 127/59
[2021-06-15 16:00] VITALS: BP 137/71
[2021-06-15 20:30] VITALS: BP 133/74
[2021-06-16] VITALS: BP 110/41
[2021-06-16 04:00] VITALS: BP 112/47
[2021-06-16 07:25] LABS: HEMATOCRIT 23.2 % (42.0-52.0); HEMOGLOBIN 7.7 gm/dL (14.0-18.0); MCHC 33.3 g/dL (28.0-37.0); MCV 87.1 fL (80.0-100.0); MPV 7.3 fl. (7.2-11.1); RBC 2.66 mil/uL (4.50-6.00); RDW-CV 17.8 % (10.5-14.5); WBC 9.2 thou/uL (4.0-11.0)
[2021-06-16 07:37] LABS: ANION GAP < 0 mmol/L (7-16); BUN 6 mg/dL (7-18); CALCIUM 8.1 mg/dL (8.5-10.1); CHLORIDE 106 mmol/L (98-107); CO2 31 mmol/L (21-32); CREATININE 0.8 mg/dL (0.6-1.3); GLUCOSE 104 mg/dL (70-99); MAGNESIUM 1.5 mg/dL (1.8-2.4); POTASSIUM 3.6 mmol/L (3.5-5.1); SODIUM 136 mmol/L (136-145)
[2021-06-16 12:11] VITALS: BP 123/63
--- NOTE | 2021-06-16 12:26 | TEE ---
[place] [address] TRANSESOPHAGEAL ECHOCARDIOGRAM Name: FLORENCIA MONTALVO Room: [address] IN [facility]#: [id number] Admission: 06/01/21 Attend Phys: Radha Hernandez, Discharge: Date of : 63 Date of Service: 06/16/21 1226 Report #: [id number] THIS REPORT FOR: cc: Rajesh Hearn Kevin E. DO Liston, Michael J. MD [facility] ~ APPROVED REPORT Study performed: 06/16/2021 09:26:28 EXAM: Transesophageal Echocardiogram Patient Location: In-Patient Room #: [facility] Status: routine BSA: 3.27 HR: 82 bpm BP: 127/58 mmHg Rhythm: NSR Other Information Study Quality: Good Indications Septic, R/O valvular vegetation Echo Enhancing Agent Indication: Rule out Shunt Agent(s) / Amount(s) Used: Agitated Saline 10 cc Procedure After obtaining informed consent, patient underwent transesophageal echo in the Bedside. Type of Sedation : Conscious Sedation Sedation was administered by Moira Montalvo RN. Sedation start time: 939 Case end Time: 954 Sedation was achieved intravenously with: Versed (4) Fentanyl (100) Transesophageal probe was inserted and advanced into esophagus without difficulty by Mitchel Jones MD, [facility]. Echo enhancement indication: R/O Septal defect. Echo enhancement agent administered: Agitated Saline The ASMITA was performed without complications. Throughout the procedure, the blood pressure, pulse oximetry, cardiac rhythm, [place] [address] TRANSESOPHAGEAL ECHOCARDIOGRAM Name: WALLACEFLORENCIA CHAVES Room: [address]#: [id number] Admission: 06/01/21 Attend Phys: Radha Hernandez, Discharge: Date of : 63 Date of Service: 06/16/21 1226 Report #: [id number] The patient tolerated the procedure without adverse effects. Recovery from conscious sedation was uneventful and vital signs were stable. Left Ventricle The left ventricle is normal size. There is normal LV segmental wall motion. There is normal left ventricular wall thickness. Left ventricular systolic function is normal. LVEF is 55-60%. Right Ventricle The right ventricle is normal size. The right ventricular systolic function is normal. Atria The left atrium size is normal. Left atrial appendage not well seen. Left atrium is not well visualized. Left atrium is at the upper limits of normal. The interatrial septum is intact with no evidence for an atrial septal defect. The right atrium size is normal. Aortic Valve The aortic valve is normal in structure. No aortic regurgitation is present. There is no aortic valvular stenosis. Mitral Valve The mitral valve is normal in structure. There is no mitral valve regurgitation noted. No evidence of mitral valve stenosis. Tricuspid Valve The tricuspid valve is normal in structure. There is no tricuspid valve regurgitation noted. Pulmonic Valve Pulmonic valve is not well visualized. Great Vessels The aortic root is normal in size. Pericardium There is no pericardial effusion. <Conclusion> The left ventricle is normal size. There is normal left ventricular wall thickness. Left ventricular systolic function is normal. LVEF is 55-60%. There is normal LV [place] [address] TRANSESOPHAGEAL ECHOCARDIOGRAM Name: WALLACEFLORENCIA ANASTACIO Room: [address] IN ..#: [id number] Admission: 06/01/21 Attend Phys: Radha Hernandez, Discharge: Date of : 63 Date of Service: 06/16/211225 Report #: [id number] The interatrial septum is intact with no evidence for an atrial septal defect. No valvular vegetations seen. <ELECTRONICALLY SIGNED> By: Mitchel Jones MD, FACC 06/16/211225 25 25 Mitchel Jones MD, FACC /INF
[2021-06-16 16:40] VITALS: BP 100/39
[2021-06-16 20:00] VITALS: BP 132/75
[2021-06-17] VITALS (7 sets, daily range): BP systolic 100–134; BP diastolic 38–69
[2021-06-18 04:31] VITALS: BP 105/69
[2021-06-18 08:00] VITALS: BP 144/57
[2021-06-18 09:33] LABS: ABSOLUTE EOSINOPHILS 0.2 thou/uL (0.0-0.7); ABSOLUTE LYMPHOCYTES 1.9 thou/uL (0.8-5.3); ABSOLUTE MONOCYTES 0.7 thou/uL (0.0-1.2); ABSOLUTE NEUTROPHILS 4.7 thou/uL (1.6-8.1); BASOPHILS 0.6 %; EOSINOPHILS 2.6 %; HEMATOCRIT 28.1 % (42.0-52.0); HEMOGLOBIN 8.9 gm/dL (14.0-18.0); LYMPHOCYTES 24.6 %; MCH 27.8 pg (26.0-34.0); MCHC 31.9 g/dL (28.0-37.0); MCV 87.4 fL (80.0-100.0); MONOCYTES 9.9 %; MPV 7.4 fl. (7.2-11.1); NUCLEATED RBCS 0 /100WBC; PLATELET COUNT* 238 thou/uL (150-400); POLYS 62.3 %; RBC 3.21 mil/uL (4.50-6.00); RDW-CV 17.8 % (10.5-14.5); WBC 7.6 thou/uL (4.0-11.0)
[2021-06-18 09:40] LABS: CALCIUM 8.6 mg/dL (8.5-10.1); CREATININE 0.9 mg/dL (0.6-1.3); MAGNESIUM 1.7 mg/dL (1.8-2.4); POTASSIUM 3.5 mmol/L (3.5-5.1)
--- NOTE | 2021-06-18 11:53 | EKG ---
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 : 1965 Requested By: Mitchel Jones Order Number: [id number] Reading MD: Royal Garcia Measurements Intervals [place] Rate: 83 P: 52 IL: 205 QRS: -13 QRSD: 120 T: 87 QT: 398 QTc: 468 Interpretive Statements Sinus rhythm Borderline prolonged [place] interval Nonspecific intraventricular conduction delay Compared to ECG 06/17/2021 14:35:04 Atrial premature complex(es) no longer present Myocardial infarct finding no longer present Electronically Signed On 06-18-2021 11:52:49 CDT by Royal Garcia [email or web address] <ELECTRONICALLY SIGNED> By: Jewels Garcia MD, [facility] 06/18/21 1152 1020 1020 Jewels Garcia MD, [facility] /EPI
[2021-06-18 12:17] VITALS: BP 124/75
[2021-06-18 17:33] VITALS: BP 128/64
[2021-06-18 20:30] VITALS: BP 129/62
[2021-06-18 23:30] VITALS: BP 122/51
[2021-06-19 04:00] VITALS: BP 132/67
[2021-06-19 08:00] VITALS: BP 139/59
[2021-06-19 12:18] VITALS: BP 121/73
[2021-06-19 17:05] VITALS: BP 119/68
[2021-06-19 20:00] VITALS: BP 128/59
[2021-06-20] VITALS: BP 121/63
[2021-06-20 04:00] VITALS: BP 129/75
[2021-06-20 07:14] LABS: HEMATOCRIT 24.7 % (42.0-52.0); HEMOGLOBIN 7.9 gm/dL (14.0-18.0); MCH 27.9 pg (26.0-34.0); MCHC 31.9 g/dL (28.0-37.0); MCV 87.4 fL (80.0-100.0); MPV 6.7 fl. (7.2-11.1); RBC 2.82 mil/uL (4.50-6.00); RDW-CV 18.1 % (10.5-14.5)
[2021-06-20 07:53] LABS: CALCIUM 8.3 mg/dL (8.5-10.1); CREATININE 0.9 mg/dL (0.6-1.3); MAGNESIUM 1.6 mg/dL (1.8-2.4); POTASSIUM 3.8 mmol/L (3.5-5.1); TOTAL BILIRUBIN 0.3 mg/dL (<0.1-1.0); TOTAL PROTEIN 6.3 g/dL (6.4-8.2)
--- NOTE | 2021-06-20 10:33 | EKG ---
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 : 1965 Requested By: Radha Hernandez Order Number: [id number] Jayne MD: Arden Malhotra Measurements Intervals [place] Rate: 77 P: 59 SC: 211 QRS: -18 QRSD: 119 T: 62 QT: 424 QTc: 480 Interpretive Statements Sinus rhythm Atrial premature complexes Prolonged [place] interval Nonspecific intraventricular conduction delay Compared to ECG 06/13/2021 11:05:26 First degree AV block now present Intraventricular conduction delay now present Electronically Signed On 06-20-2021 10:32:58 CDT by Arden Malhotra [email or web address] <ELECTRONICALLY SIGNED> By: Arden Malhotra MD, FAC 06/20/21 1032 1435 1435 Arden Malhotra MD, FAC /EPI
--- NOTE | 2021-06-20 12:54 | EKG ---
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: KENNY : 1965 Requested By: Radha Hernandez Order Number: [id number] Reading MD: Arden Malhotra Measurements Intervals [place] Rate: 83 P: 47 ME: 193 QRS: -12 QRSD: 116 T: 61 QT: 398 QTc: 468 Interpretive Statements Sinus rhythm Atrial premature complex Borderline low voltage, extremity leads Compared to ECG 06/18/2021 10:20:52 Atrial premature complex(es) now present Electronically Signed On 06-20-2021 12:54:03 CDT by Arden Malhotra [email or web address] <ELECTRONICALLY SIGNED> By: Arden Malhotra MD, [facility] 06/20/21 1254 1008 1008 Arden Malhotra MD, [facility] /EPI
[2021-06-20 13:02] VITALS: BP 140/66
[2021-06-20 17:21] VITALS: BP 123/56
[2021-06-20 20:00] VITALS: BP 137/78
[2021-06-21 04:14] LABS: HEMATOCRIT 24.7 % (42.0-52.0); MCH 28.2 pg (26.0-34.0); MCHC 32.4 g/dL (28.0-37.0); MCV 87.2 fL (80.0-100.0); MPV 6.7 fl. (7.2-11.1); RBC 2.83 mil/uL (4.50-6.00); RDW-CV 17.3 % (10.5-14.5); WBC 5.9 thou/uL (4.0-11.0)
[2021-06-21 04:37] LABS: CALCIUM 8.5 mg/dL (8.5-10.1); CREATININE 0.9 mg/dL (0.6-1.3); MAGNESIUM 1.5 mg/dL (1.8-2.4); POTASSIUM 3.9 mmol/L (3.5-5.1); TOTAL BILIRUBIN 0.3 mg/dL (<0.1-1.0); TOTAL PROTEIN 6.3 g/dL (6.4-8.2)
[2021-06-21 08:10] VITALS: BP 155/84
[2021-06-21 12:10] VITALS: BP 120/67
[2021-06-21 18:35] VITALS: BP 124/66
[2021-06-21 20:00] VITALS: BP 130/70
[2021-06-22 04:37] LABS: HEMATOCRIT 24.8 % (42.0-52.0); MCH 27.8 pg (26.0-34.0); MCHC 32.3 g/dL (28.0-37.0); MCV 86.2 fL (80.0-100.0); MPV 7.1 fl. (7.2-11.1); RBC 2.87 mil/uL (4.50-6.00); RDW-CV 17.2 % (10.5-14.5); WBC 6.2 thou/uL (4.0-11.0)
[2021-06-22 05:07] LABS: ALBUMIN 2.1 g/dL (3.4-5.0); CALCIUM 8.7 mg/dL (8.5-10.1); CREATININE 0.9 mg/dL (0.6-1.3); MAGNESIUM 1.6 mg/dL (1.8-2.4); TOTAL BILIRUBIN 0.4 mg/dL (<0.1-1.0); TOTAL PROTEIN 6.7 g/dL (6.4-8.2)
[2021-06-22 09:15] VITALS: BP 116/64
[2021-06-22 11:59] VITALS: BP 104/48
[2021-06-22] MEDS ORDERED: CEFAZOLIN2 GM/100 M IV (12:09)
[2021-06-22] MEDS ORDERED: IRON325 PO (12:09)
[2021-06-22] MEDS ORDERED: NORCO5 PO (12:09)
[2021-06-22] MEDS ORDERED: VANCOMYCIN HCL125 MG PO (12:09)
[2021-06-22] MEDS ORDERED: DILTIAZEM 24HR180 M1 PO (12:09)
[2021-06-22] MEDS ORDERED: PULMICORT0.5 MG/2 M INH (12:09)
[2021-06-22] MEDS ORDERED: SORINE 80 MG TA80 M1 PO (12:09)
[2021-06-22] MEDS ORDERED: PROTONIX40 M2 PO (12:13)
[2021-06-22 17:45] VITALS: BP 124/69
--- NOTE | 2021-06-23 15:08 | PATH ---
[address] [address] PATHOLOGY RPT PROCEDURE Name: FLORENCIA MONTALVO Room: [address] IN M.R.#: [id number] Admission: 06/01/21 Date of : 63 Discharge: 06/22/21 Report #: [id number] Path Case #: [id number] [facility] Accession Number: [id number] . 01 Material submitted: . stomach - ANTRAL ULCER . 01 Clinical history: . EGD IN OR SEPSIS, RESPIRATORY FAILURE, R KNEE INFECTION . 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 (KATHRYN:pit; 06/23/2021) . Special stain: H. pylori immuno QTP 06/23/2021 1309 Local . 02 Electronically signed: . Jose J Ng MD, Pathologist NPI- [id number] . 01 Gross description: . The specimen is received in formalin, labeled "Florencia Montalvo, antral ulcer". Received are 4 segments of pale bass tissue ranging in size from 0.2 to 0.8 cm in maximum dimensions. The specimen is submitted entirely in cassette A1.([facility]; 06/22/2021) [facility] 06/22/2021 1739 Local . 02 Pathologist provided ICD-10: K29.50 . 02 CPT . 299737, W28921 Specimen Comment: A courtesy copy of this report has been sent to [phone] Specimen Comment: [phone], Specimen Comment: Report sent to , DR APONTE / DR CASTREJON Performed at: [address] [id number] MD Jaden Darby MD Phone: [phone] Performed at: [address] [place], [place] [id number] [place] [address] PATHOLOGY RPT PROCEDURE Name: FLORENCIA MONTALVO ANASTACIO Room: [address] IN M.R.#: [id number] Admission: 06/01/21 Date of : 63 Discharge: 06/22/21 Report #: [id number] Path Case #: [id number] MD Jose J Ng MD Phone: [phone]
== END 2021-06-22 19:15 | DRG 853 ==
LOC: M.ERS 08:53 → M.TBA-ER 10:39 → M.2W 10:39 → M.ICU 10:39 → M.2W 06-08 17:08
PROVIDERS: Family Medicine; Internal Medicine; Internal Medicine Critical Care Medicine; Pediatrics; Registered Nurse; ADMIT Internal Medicine; ATTEND Internal Medicine
PROC: 0BH17EZ Insertion of Endotracheal Airway into Trachea, Via Natural or Artificial Opening (ICD-10-PCS; principal; 2021-06-01)
PROC: 03HY32Z Insertion of Monitoring Device into Upper Artery, Percutaneous Approach (ICD-10-PCS; principal; 2021-06-01)
PROC: 5A1945Z Respiratory Ventilation, 24-96 Consecutive Hours (ICD-10-PCS; principal; 2021-06-01)
PROC: 0JBP0ZZ Excision of Left Lower Leg Subcutaneous Tissue and Fascia, Open Approach (ICD-10-PCS; 2021-06-03)
PROC: 0JBN0ZZ Excision of Right Lower Leg Subcutaneous Tissue and Fascia, Open Approach (ICD-10-PCS; 2021-06-03)
PROC: 5A0935A Assistance with Respiratory Ventilation, Less than 24 Consecutive Hours, High Flow/Velocity Cannula (ICD-10-PCS; 2021-06-05)
PROC: 5A09357 Assistance with Respiratory Ventilation, Less than 24 Consecutive Hours, Continuous Positive Airway Pressure (ICD-10-PCS; 2021-06-05)
PROC: 5A0935A Assistance with Respiratory Ventilation, Less than 24 Consecutive Hours, High Flow/Velocity Cannula (ICD-10-PCS; 2021-06-06)
PROC: 5A0935A Assistance with Respiratory Ventilation, Less than 24 Consecutive Hours, High Flow/Velocity Cannula (ICD-10-PCS; 2021-06-07)
PROC: 5A0935A Assistance with Respiratory Ventilation, Less than 24 Consecutive Hours, High Flow/Velocity Cannula (ICD-10-PCS; 2021-06-08)
PROC: B24BZZ4 Ultrasonography of Heart with Aorta, Transesophageal (ICD-10-PCS; 2021-06-16)
PROC: 5A0935A Assistance with Respiratory Ventilation, Less than 24 Consecutive Hours, High Flow/Velocity Cannula (ICD-10-PCS; 2021-06-16)
PROC: 02HV33Z Insertion of Infusion Device into Superior Vena Cava, Percutaneous Approach (ICD-10-PCS; 2021-06-16)
PROC: 0DB68ZX Excision of Stomach, Via Natural or Artificial Opening Endoscopic, Diagnostic (ICD-10-PCS; 2021-06-21)
PROC: 5A09357 Assistance with Respiratory Ventilation, Less than 24 Consecutive Hours, Continuous Positive Airway Pressure (ICD-10-PCS; 2021-06-22)
DX: A41.9 Sepsis, unspecified organism (principal); J96.01 Acute respiratory failure with hypoxia; R65.21 Severe sepsis with septic shock; N17.0 Acute kidney failure with tubular necrosis; M00.9 Pyogenic arthritis, unspecified; M62.82 Rhabdomyolysis; A04.72 Enterocolitis due to Clostridium difficile, not specified as recurrent; I48.92 Unspecified atrial flutter; Z68.44 Body mass index [BMI] 60.0-69.9, adult; E66.01 Morbid (severe) obesity due to excess calories; G47.33 Obstructive sleep apnea (adult) (pediatric); E16.2 Hypoglycemia, unspecified; I49.3 Ventricular premature depolarization; E78.5 Hyperlipidemia, unspecified; S80.812A Abrasion, left lower leg, initial encounter; I95.9 Hypotension, unspecified; I87.2 Venous insufficiency (chronic) (peripheral); R41.0 Disorientation, unspecified; F29 Unspecified psychosis not due to a substance or known physiological condition; S81.802A Unspecified open wound, left lower leg, initial encounter; Z20.822 Contact with and (suspected) exposure to COVID-19; D64.9 Anemia, unspecified; K44.9 Diaphragmatic hernia without obstruction or gangrene; K31.9 Disease of stomach and duodenum, unspecified; X58.XXXA Exposure to other specified factors, initial encounter; Y93.89 Activity, other specified; Y92.89 Other specified places as the place of occurrence of the external cause; Y99.8 Other external cause status

== ENCOUNTER 2021-06-22 16:17 | Inpatient (IN) | payer OTHER ==
[~2021-06-22] VITALS: Ht 193 cm; Wt 226.8 kg
[~2021-06-22 16:17] MED LIST: APAP W/CODEINE1 TA2 PO; ASA81BEC PO; BACITRACIN1 EACH TOP; CEFAZOLIN2 GM/100 M IV; CETIRIZINE HCL5 MG PO; DIAZEPAM 5 MG5 MG PO; DILTIAZEM 24HR180 M1 PO; DULCOLAX STOOL100 M1 PO; EFFER-K 10 MEQ10 ME1 PO; FLEXERIL PO; FUROSEMIDE 40 M40 MG PO; IPRATROPIUM BRO30 ML INH; IRON325 PO; KEFLEX750 MG PO; MECLIZINE HCL25 M1 PO; MOBIC7.5 MG PO; NEURONTIN300 MG PO; NORCO5 PO; ONDANSETRON ODT4 MG PO; PRINIVIL20 MG PO; PROTONIX40 M2 PO; PULMICORT0.5 MG/2 M INH; SIMVASTATIN80 MG PO; SORINE 80 MG TA80 M1 PO; SUPER THERAVIT1 EACH PO; TERBINAFINE HC250 MG PO; VANCOMYCIN HCL125 MG PO
[2021-06-22 21:00] VITALS: BP 109/58
[2021-06-23 04:34] LABS: HEMATOCRIT 24.1 % (42.0-52.0); HEMOGLOBIN 7.9 gm/dL (14.0-18.0); MCH 28.1 pg (26.0-34.0); MCHC 32.9 g/dL (28.0-37.0); MCV 85.4 fL (80.0-100.0); MPV 6.7 fl. (7.2-11.1); RBC 2.82 mil/uL (4.50-6.00); RDW-CV 17.1 % (10.5-14.5); WBC 5.9 thou/uL (4.0-11.0)
[2021-06-23 04:52] LABS: CALCIUM 8.7 mg/dL (8.5-10.1)
[2021-06-23 07:56] VITALS: BP 120/67
[2021-06-23 19:44] VITALS: BP 125/67
[2021-06-24 07:48] VITALS: BP 134/79
[2021-06-24 22:00] VITALS: BP 115/67
[2021-06-25 08:16] VITALS: BP 135/75
[2021-06-25 09:49] VITALS: BP 135/75
[2021-06-25 20:00] VITALS: BP 129/75
[2021-06-26 09:13] VITALS: BP 125/76
[2021-06-26 20:00] VITALS: BP 133/69
[2021-06-27 07:30] VITALS: BP 118/75
[2021-06-27 19:00] VITALS: BP 128/75
[2021-06-28] VITALS (12 sets, daily range): BP systolic 112–133; BP diastolic 53–86
--- NOTE | 2021-06-28 16:01 | TEE ---
[place] [address] TRANSESOPHAGEAL ECHOCARDIOGRAM Name: FLORENCIA GONSALEZ Room: [address] IN [facility]#: [id number] Admission: 06/22/21 Attend Phys: Jackson Guillen MD Discharge: Date of : 63 Date of Service: 06/28/21 1600 Report #: [id number] THIS REPORT FOR: cc: Rajesh Hearn Kevin E. DO Liston, Michael J. MD [facility] ~ APPROVED REPORT Study performed: 06/28/2021 14:45:28 EXAM: Transesophageal Echocardiogram Patient Location: In-Patient Room #: [facility] Status: routine BSA: 3.27 HR: 87 bpm BP: 125/58 mmHg Rhythm: NSR Other Information Study Quality: Good Indications bacteremia Procedure After obtaining informed consent, patient underwent transesophageal echo in the Bedside. Type of Sedation : Conscious Sedation Sedation was administered by Ara Magdaleno RN. Sedation start time: 1457 Case end Time: 1510 Sedation was achieved intravenously with: Versed (6) Fentanyl (150) Transesophageal probe was inserted and advanced into esophagus without difficulty by Mitchel Jones MD, [facility]. The ASMITA was performed without complications. Throughout the procedure, the blood pressure, pulse oximetry, cardiac rhythm, and rate were monitored. The patient tolerated the procedure without adverse effects. Recovery from conscious sedation was uneventful and vital signs were stable. Left Ventricle The left ventricle is normal size. There is normal LV segmental wall [address] [address] TRANSESOPHAGEAL ECHOCARDIOGRAM Name: FLORENCIA GONSALEZ Room: [address] IN [facility].#: [id number] Admission: 06/22/21 Attend Phys: Jackson Guillen MD Discharge: Date of : 63 Date of Service: 06/28/21 1600 Report #: [id number] motion. There is normal left ventricular wall thickness. Left ventricular systolic function is normal. LVEF is 55-60%. Right Ventricle The right ventricle is normal size. The right ventricular systolic function is normal. Atria The left atrium size is normal. No thrombus is visualized in the left atrium or appendage. The right atrium size is normal. Aortic Valve The aortic valve is normal in structure. No aortic regurgitation is present. There is no aortic valvular stenosis. Mitral Valve The mitral valve is normal in structure. Trace mitral regurgitation. No evidence of mitral valve stenosis. Tricuspid Valve The tricuspid valve is normal in structure. There is no tricuspid valve regurgitation noted. Pulmonic Valve The pulmonary valve is normal in structure. There is no pulmonic valvular regurgitation. Great Vessels The aortic root is normal in size. Pericardium There is no pericardial effusion. <Conclusion> The left ventricle is normal size. There is normal left ventricular wall thickness. Left ventricular systolic function is normal. LVEF is 55-60%. There is normal LV segmental wall motion. The left atrium size is normal. No thrombus is visualized in the left atrium or appendage. The aortic valve is normal in structure. The mitral valve is normal in structure. The tricuspid valve [place] [address] TRANSESOPHAGEAL ECHOCARDIOGRAM Name: FLORENCIA GONSALEZ Room: [address] IN ..#: [id number] Admission: 06/22/21 Attend Phys: Jackson Guillen MD Discharge: Date of : 63 Date of Service: 06/28/211599 Report #: [id number] No valvular vegitations seen. <ELECTRONICALLY SIGNED> By: Mitchel Jones MD, FACC 06/28/211599 99 99 Mitchel Jones MD, FACC /INF
[2021-06-29 07:03] VITALS: BP 136/84
[2021-06-29 07:29] LABS: HEMATOCRIT 24.9 % (42.0-52.0); HEMOGLOBIN 8.1 gm/dL (14.0-18.0); MCH 27.3 pg (26.0-34.0); MCHC 32.4 g/dL (28.0-37.0); MCV 84.2 fL (80.0-100.0); MPV 6.3 fl. (7.2-11.1); RBC 2.95 mil/uL (4.50-6.00); RDW-CV 16.8 % (10.5-14.5)
[2021-06-29 07:42] LABS: ANION GAP < 0 mmol/L (7-16); BUN 7 mg/dL (7-18); CALCIUM 8.8 mg/dL (8.5-10.1); CHLORIDE 102 mmol/L (98-107); CO2 29 mmol/L (21-32); CREATININE 0.8 mg/dL (0.6-1.3); GLUCOSE 103 mg/dL (70-99); POTASSIUM 3.3 mmol/L (3.5-5.1); SODIUM 125 mmol/L (136-145)
[2021-06-29 11:37] LABS: CALCIUM 9.2 mg/dL (8.5-10.1); CREATININE 0.9 mg/dL (0.6-1.3); POTASSIUM 3.9 mmol/L (3.5-5.1)
[2021-06-29 20:00] VITALS: BP 146/49
[2021-06-30 08:11] VITALS: BP 139/74
[2021-06-30 08:38] LABS: HEMATOCRIT 24.9 % (42.0-52.0); MCH 27.4 pg (26.0-34.0); MCHC 32.3 g/dL (28.0-37.0); MCV 84.9 fL (80.0-100.0); MPV 6.4 fl. (7.2-11.1); RBC 2.93 mil/uL (4.50-6.00); RDW-CV 16.2 % (10.5-14.5); WBC 4.8 thou/uL (4.0-11.0)
[2021-06-30 08:58] LABS: ALBUMIN 2.3 g/dL (3.4-5.0); CALCIUM 8.7 mg/dL (8.5-10.1); CREATININE 0.8 mg/dL (0.6-1.3); MAGNESIUM 1.4 mg/dL (1.8-2.4); POTASSIUM 3.5 mmol/L (3.5-5.1); TOTAL BILIRUBIN 0.3 mg/dL (<0.1-1.0); TOTAL PROTEIN 6.9 g/dL (6.4-8.2)
[2021-06-30 09:37] LABS: APTT 30.8 Seconds (25.0-31.3); INR 1.1; PROTIME 11.1 Seconds (9.20-11.50)
== END 2021-06-30 08:50 | disposition short-term general hospital (02) | DRG 947 ==
LOC: M.REH 16:17
PROVIDERS: Internal Medicine; ADMIT Physical Medicine & Rehabilitation; ATTEND Physical Medicine & Rehabilitation
PROC: 5A09357 Assistance with Respiratory Ventilation, Less than 24 Consecutive Hours, Continuous Positive Airway Pressure (ICD-10-PCS; principal; 2021-06-26)
PROC: 5A09357 Assistance with Respiratory Ventilation, Less than 24 Consecutive Hours, Continuous Positive Airway Pressure (ICD-10-PCS; 2021-06-28)
PROC: B24BZZ4 Ultrasonography of Heart with Aorta, Transesophageal (ICD-10-PCS; 2021-06-28)
PROC: 5A09357 Assistance with Respiratory Ventilation, Less than 24 Consecutive Hours, Continuous Positive Airway Pressure (ICD-10-PCS; 2021-06-29)
PROC: 5A09357 Assistance with Respiratory Ventilation, Less than 24 Consecutive Hours, Continuous Positive Airway Pressure (ICD-10-PCS; 2021-06-30)
DX: R53.81 Other malaise (principal); A41.9 Sepsis, unspecified organism; R65.21 Severe sepsis with septic shock; N17.0 Acute kidney failure with tubular necrosis; J96.01 Acute respiratory failure with hypoxia; S82.001A Unspecified fracture of right patella, initial encounter for closed fracture; A04.72 Enterocolitis due to Clostridium difficile, not specified as recurrent; I48.92 Unspecified atrial flutter; Z68.44 Body mass index [BMI] 60.0-69.9, adult; R41.0 Disorientation, unspecified; F29 Unspecified psychosis not due to a substance or known physiological condition; E66.01 Morbid (severe) obesity due to excess calories; D64.9 Anemia, unspecified; K20.90 Esophagitis, unspecified without bleeding; X58.XXXA Exposure to other specified factors, initial encounter; Y93.89 Activity, other specified; Z79.82 Long term (current) use of aspirin; Z79.899 Other long term (current) drug therapy; Y92.89 Other specified places as the place of occurrence of the external cause; Y99.8 Other external cause status; Z23 Encounter for immunization

== ENCOUNTER 2021-06-30 08:22 | Inpatient (IN) | payer OTHER ==
[~2021-06-30] VITALS: Ht 193 cm; Wt 215.5 kg
[2021-06-30 16:32] VITALS: BP 149/89
[2021-06-30 21:42] VITALS: BP 137/82
[2021-07-01 00:26] VITALS: BP 137/79
[2021-07-01 04:24] LABS: HEMATOCRIT 25.9 % (42.0-52.0); HEMOGLOBIN 8.2 gm/dL (14.0-18.0); MCH 27.1 pg (26.0-34.0); MCHC 31.5 g/dL (28.0-37.0); MCV 85.8 fL (80.0-100.0); MPV 6.2 fl. (7.2-11.1); RBC 3.02 mil/uL (4.50-6.00); RDW-CV 16.5 % (10.5-14.5); WBC 5.3 thou/uL (4.0-11.0)
[2021-07-01 04:55] LABS: ALBUMIN 2.3 g/dL (3.4-5.0); CALCIUM 8.8 mg/dL (8.5-10.1); CREATININE 0.8 mg/dL (0.6-1.3); MAGNESIUM 1.4 mg/dL (1.8-2.4); TOTAL BILIRUBIN 0.3 mg/dL (<0.1-1.0); TOTAL PROTEIN 7.1 g/dL (6.4-8.2)
[2021-07-01 09:15] VITALS: BP 148/70
[2021-07-01 17:03] VITALS: BP 138/66
[2021-07-01 19:45] VITALS: BP 137/76
[2021-07-02 05:42] LABS: HEMATOCRIT 24.3 % (42.0-52.0); HEMOGLOBIN 7.9 gm/dL (14.0-18.0); MCH 27.4 pg (26.0-34.0); MCHC 32.6 g/dL (28.0-37.0); MPV 6.3 fl. (7.2-11.1); RBC 2.9 mil/uL (4.50-6.00); RDW-CV 16.1 % (10.5-14.5); WBC 5.2 thou/uL (4.0-11.0)
[2021-07-02 06:07] LABS: ALBUMIN 2.2 g/dL (3.4-5.0); CALCIUM 8.7 mg/dL (8.5-10.1); CREATININE 0.8 mg/dL (0.6-1.3); MAGNESIUM 1.4 mg/dL (1.8-2.4); POTASSIUM 3.7 mmol/L (3.5-5.1); TOTAL BILIRUBIN 0.3 mg/dL (<0.1-1.0); TOTAL PROTEIN 7.1 g/dL (6.4-8.2)
[2021-07-02 07:45] VITALS: BP 121/80
[2021-07-02 15:44] VITALS: BP 125/79
[2021-07-02 20:55] VITALS: BP 124/68
[2021-07-03 00:30] VITALS: BP 118/74
[2021-07-03 07:56] VITALS: BP 127/72
[2021-07-03 21:45] VITALS: BP 124/71
[2021-07-04 08:00] VITALS: BP 124/78
[2021-07-04 16:00] VITALS: BP 127/67
[2021-07-05 08:53] VITALS: BP 125/66
[2021-07-05 15:30] VITALS: BP 139/65
[2021-07-05 21:30] VITALS: BP 134/80
[2021-07-06 08:00] VITALS: BP 120/59
[2021-07-06 16:23] VITALS: BP 104/73
[2021-07-06 21:07] VITALS: BP 139/79
[2021-07-07 08:00] VITALS: BP 126/63
[2021-07-07 15:44] VITALS: BP 131/56
[2021-07-07 20:00] VITALS: BP 126/74
[2021-07-08 04:28] LABS: HEMATOCRIT 26.4 % (42.0-52.0); HEMOGLOBIN 8.4 gm/dL (14.0-18.0); MCH 26.3 pg (26.0-34.0); MCHC 31.7 g/dL (28.0-37.0); MCV 82.9 fL (80.0-100.0); MPV 6.4 fl. (7.2-11.1); RBC 3.18 mil/uL (4.50-6.00); RDW-CV 16.2 % (10.5-14.5); WBC 6.1 thou/uL (4.0-11.0)
[2021-07-08 04:52] LABS: ALBUMIN 2.2 g/dL (3.4-5.0); CALCIUM 8.7 mg/dL (8.5-10.1); CREATININE 0.9 mg/dL (0.6-1.3); MAGNESIUM 1.6 mg/dL (1.8-2.4); POTASSIUM 3.9 mmol/L (3.5-5.1); TOTAL BILIRUBIN 0.2 mg/dL (<0.1-1.0); TOTAL PROTEIN 7.2 g/dL (6.4-8.2)
[2021-07-08 15:29] VITALS: BP 133/68
[2021-07-08 20:00] VITALS: BP 130/67
[2021-07-09 08:00] VITALS: BP 107/67
[2021-07-09 16:34] VITALS: BP 136/60
[2021-07-09 19:45] VITALS: BP 117/71
[2021-07-10 08:20] VITALS: BP 130/68
[2021-07-10 15:51] VITALS: BP 109/67
[2021-07-10 19:45] VITALS: BP 110/53
[2021-07-11 04:20] LABS: HEMATOCRIT 26.9 % (42.0-52.0); HEMOGLOBIN 8.5 gm/dL (14.0-18.0); MCH 26.6 pg (26.0-34.0); MCHC 31.7 g/dL (28.0-37.0); MPV 6.5 fl. (7.2-11.1); RBC 3.2 mil/uL (4.50-6.00); RDW-CV 16.8 % (10.5-14.5); WBC 6.3 thou/uL (4.0-11.0)
[2021-07-11 04:57] LABS: ALBUMIN 2.3 g/dL (3.4-5.0); CALCIUM 8.9 mg/dL (8.5-10.1); CREATININE 0.9 mg/dL (0.6-1.3); MAGNESIUM 1.7 mg/dL (1.8-2.4); POTASSIUM 3.7 mmol/L (3.5-5.1); TOTAL BILIRUBIN 0.2 mg/dL (<0.1-1.0); TOTAL PROTEIN 7.4 g/dL (6.4-8.2)
[2021-07-11 08:00] VITALS: BP 129/71
[2021-07-11 16:09] VITALS: BP 131/69
[2021-07-11 20:54] VITALS: BP 124/66
[2021-07-12 08:00] VITALS: BP 119/54
[2021-07-12 15:59] VITALS: BP 126/71
[2021-07-13 08:00] VITALS: BP 136/78
[2021-07-13 16:00] VITALS: BP 127/73
[2021-07-13 20:00] VITALS: BP 128/73
[2021-07-14 09:23] VITALS: BP 112/79
[2021-07-14 16:09] VITALS: BP 111/71
[2021-07-14 20:00] VITALS: BP 120/77
[2021-07-15 04:00] VITALS: BP 121/75
[2021-07-15 07:50] VITALS: BP 102/50
[2021-07-15 16:06] VITALS: BP 113/65
[2021-07-15 20:00] VITALS: BP 120/75
[2021-07-16] VITALS: BP 124/72
[2021-07-16 07:47] VITALS: BP 116/65
[2021-07-16 17:35] VITALS: BP 117/72
[2021-07-16 20:00] VITALS: BP 112/70
[2021-07-17] VITALS: BP 139/91
[2021-07-17 09:30] VITALS: BP 115/65
[2021-07-17 16:00] VITALS: BP 137/49
[2021-07-17 19:50] VITALS: BP 120/76
[2021-07-18 09:40] VITALS: BP 112/75
[2021-07-18 16:00] VITALS: BP 116/73
[2021-07-18 20:06] VITALS: BP 114/75
[2021-07-19 08:05] VITALS: BP 118/68
[2021-07-19 15:35] VITALS: BP 115/59
[2021-07-19 20:45] VITALS: BP 123/77
[2021-07-20 07:55] VITALS: BP 121/79
[2021-07-20 15:51] VITALS: BP 111/73
[2021-07-20 20:40] VITALS: BP 124/79
[2021-07-20 23:57] VITALS: BP 116/72
[2021-07-21 08:00] VITALS: BP 118/69
[2021-07-21 15:42] VITALS: BP 144/76
[2021-07-21 21:00] VITALS: BP 126/72
[2021-07-22 03:51] VITALS: BP 112/67
[2021-07-22 08:00] VITALS: BP 118/78
[2021-07-22 16:30] VITALS: BP 117/74
[2021-07-22 19:50] VITALS: BP 109/66
[2021-07-23 08:00] VITALS: BP 119/74
[2021-07-23 15:53] VITALS: BP 102/66
[2021-07-23 20:01] VITALS: BP 117/64
[2021-07-24 19:52] VITALS: BP 134/73
[2021-07-25 08:10] VITALS: BP 122/75
[2021-07-25 20:00] VITALS: BP 122/56
[2021-07-26 07:50] VITALS: BP 129/76
[2021-07-26 16:32] VITALS: BP 136/77
[2021-07-26 20:30] VITALS: BP 118/79
[2021-07-27 04:10] VITALS: BP 145/72
[2021-07-27 08:40] VITALS: BP 128/75
[2021-07-27 14:00] VITALS: BP 115/71
[2021-07-27 15:55] VITALS: BP 104/73
[2021-07-27 21:30] VITALS: BP 123/72
[2021-07-28 08:40] VITALS: BP 113/53
[2021-07-28 15:10] VITALS: BP 115/51
[2021-07-28 21:30] VITALS: BP 135/81
[2021-07-29 08:00] VITALS: BP 140/78
[2021-07-29 15:53] VITALS: BP 112/66
[2021-07-30 08:00] VITALS: BP 117/65
[2021-07-30 16:41] VITALS: BP 136/69
[2021-07-30 21:00] VITALS: BP 140/68
[2021-07-31 08:00] VITALS: BP 120/74
[2021-07-31 08:29] LABS: HEMATOCRIT 30.9 % (42.0-52.0); HEMOGLOBIN 9.8 gm/dL (14.0-18.0); MCH 25.3 pg (26.0-34.0); MCHC 31.8 g/dL (28.0-37.0); MCV 79.7 fL (80.0-100.0); MPV 7.4 fl. (7.2-11.1); RBC 3.88 mil/uL (4.50-6.00); RDW-CV 17.4 % (10.5-14.5); WBC 5.6 thou/uL (4.0-11.0)
[2021-07-31 08:41] LABS: ALBUMIN 2.7 g/dL (3.4-5.0); CALCIUM 9.5 mg/dL (8.5-10.1); CREATININE 0.9 mg/dL (0.6-1.3); MAGNESIUM 1.8 mg/dL (1.8-2.4); POTASSIUM 3.7 mmol/L (3.5-5.1); TOTAL BILIRUBIN 0.2 mg/dL (<0.1-1.0); TOTAL PROTEIN 7.3 g/dL (6.4-8.2)
[2021-07-31 16:03] VITALS: BP 110/71
[2021-07-31 20:00] VITALS: BP 141/80
[2021-08-01 00:30] VITALS: BP 126/79
[2021-08-01 09:00] VITALS: BP 123/73
[2021-08-01] MEDS ORDERED: LIDOPATCH1 EACH TOP (09:24)
[2021-08-01] MEDS ORDERED: TRAMADOL 50 MG50 MG PO (09:24)
[2021-08-01] MEDS ORDERED: NEURONTIN 400400 M1 PO (09:24)
[2021-08-01] MEDS ORDERED: NORCO5 PO (09:24)
[2021-08-01] MEDS ORDERED: HOSPITAL BED MISCELL (09:26)
[2021-08-01 16:01] VITALS: BP 127/76
[2021-08-01 19:55] VITALS: BP 144/72
[2021-08-01 21:58] VITALS: BP 99/55
[2021-08-02 00:20] VITALS: BP 132/84
[2021-08-02 04:03] VITALS: BP 121/76
[2021-08-02 04:16] VITALS: BP 99/55
[2021-08-02 07:17] LABS: ABSOLUTE EOSINOPHILS 0.3 thou/uL (0.0-0.7); ABSOLUTE LYMPHOCYTES 1.8 thou/uL (0.8-5.3); ABSOLUTE MONOCYTES 0.5 thou/uL (0.0-1.2); ABSOLUTE NEUTROPHILS 3.8 thou/uL (1.6-8.1); BASOPHILS 0.5 %; EOSINOPHILS 5.2 %; HEMATOCRIT 32.4 % (42.0-52.0); HEMOGLOBIN 10.2 gm/dL (14.0-18.0); LYMPHOCYTES 27.6 %; MCH 25.1 pg (26.0-34.0); MCHC 31.6 g/dL (28.0-37.0); MCV 79.4 fL (80.0-100.0); MONOCYTES 7.6 %; MPV 7.4 fl. (7.2-11.1); NUCLEATED RBCS 0 /100WBC; PLATELET COUNT* 272 thou/uL (150-400); POLYS 59.1 %; RBC 4.08 mil/uL (4.50-6.00); RDW-CV 17.3 % (10.5-14.5); WBC 6.4 thou/uL (4.0-11.0)
[2021-08-02 07:30] VITALS: BP 113/78
[2021-08-02 07:54] LABS: ALBUMIN 2.7 g/dL (3.4-5.0); CALCIUM 9.5 mg/dL (8.5-10.1); CREATININE 0.9 mg/dL (0.6-1.3); POTASSIUM 3.5 mmol/L (3.5-5.1); TOTAL BILIRUBIN 0.3 mg/dL (<0.1-1.0); TOTAL PROTEIN 7.5 g/dL (6.4-8.2)
[2021-08-02 08:56] LABS: BE 4.3 mmol/L (-2 to +3); PCO2 39.8 mmHg (35.0-45.0); PO2 87.2 mmHg (75.0-100.0); pH 7.469 (7.340-7.450)
[2021-08-02 15:39] VITALS: BP 116/64
[2021-08-02 20:00] VITALS: BP 133/71
[2021-08-03 00:24] LABS: BE 3.7 mmol/L (-2 to +3); PCO2 45.9 mmHg (35.0-45.0); PO2 98.7 mmHg (75.0-100.0); pH 7.415 (7.340-7.450)
[2021-08-03 08:09] VITALS: BP 130/77
[2021-08-03 16:15] VITALS: BP 131/72
[2021-08-03 20:12] VITALS: BP 138/69
[2021-08-04 04:13] LABS: HEMATOCRIT 31.4 % (42.0-52.0); HEMOGLOBIN 9.8 gm/dL (14.0-18.0); MCH 24.7 pg (26.0-34.0); MCHC 31.2 g/dL (28.0-37.0); MCV 79.2 fL (80.0-100.0); MPV 7.1 fl. (7.2-11.1); RBC 3.97 mil/uL (4.50-6.00); RDW-CV 17.7 % (10.5-14.5); WBC 5.6 thou/uL (4.0-11.0)
[2021-08-04 04:24] LABS: CALCIUM 9.3 mg/dL (8.5-10.1); POTASSIUM 3.6 mmol/L (3.5-5.1)
[2021-08-04 08:41] VITALS: BP 115/77
[2021-08-04 17:27] VITALS: BP 137/81
[2021-08-04 20:05] VITALS: BP 131/72
[2021-08-05 03:46] VITALS: BP 106/65
[2021-08-05 08:10] VITALS: BP 127/82
[2021-08-05 14:50] VITALS: BP 127/82
[2021-08-05 15:22] VITALS: BP 127/82
[2021-08-05 15:42] VITALS: BP 127/82
== END 2021-08-05 16:10 | disposition home health service (06) | DRG 853 ==
LOC: M.3W 08:22
PROVIDERS: Internal Medicine; ADMIT Internal Medicine; ATTEND Internal Medicine
PROC: 0LQQ0ZZ Repair Right Knee Tendon, Open Approach (ICD-10-PCS; principal; 2021-06-30)
PROC: 5A09357 Assistance with Respiratory Ventilation, Less than 24 Consecutive Hours, Continuous Positive Airway Pressure (ICD-10-PCS; principal; 2021-06-30)
PROC: 5A09357 Assistance with Respiratory Ventilation, Less than 24 Consecutive Hours, Continuous Positive Airway Pressure (ICD-10-PCS; 2021-07-06)
PROC: 5A09357 Assistance with Respiratory Ventilation, Less than 24 Consecutive Hours, Continuous Positive Airway Pressure (ICD-10-PCS; 2021-07-07)
PROC: 5A09557 Assistance with Respiratory Ventilation, Greater than 96 Consecutive Hours, Continuous Positive Airway Pressure (ICD-10-PCS; 2021-07-08)
DX: A41.9 Sepsis, unspecified organism (principal); N17.0 Acute kidney failure with tubular necrosis; A04.72 Enterocolitis due to Clostridium difficile, not specified as recurrent; M00.9 Pyogenic arthritis, unspecified; Z68.43 Body mass index [BMI] 50.0-59.9, adult; I10 Essential (primary) hypertension; R65.20 Severe sepsis without septic shock; S76.111A Strain of right quadriceps muscle, fascia and tendon, initial encounter; G89.29 Other chronic pain; M54.9 Dorsalgia, unspecified; E66.01 Morbid (severe) obesity due to excess calories; D64.9 Anemia, unspecified; I48.91 Unspecified atrial fibrillation; R41.0 Disorientation, unspecified; F29 Unspecified psychosis not due to a substance or known physiological condition; R53.81 Other malaise; M66.9 Spontaneous rupture of unspecified tendon; B37.9 Candidiasis, unspecified; X58.XXXA Exposure to other specified factors, initial encounter; Y93.89 Activity, other specified; Y92.89 Other specified places as the place of occurrence of the external cause; Y99.8 Other external cause status

== ENCOUNTER 2021-08-07 09:37 | Inpatient (IN) | payer OTHER ==
[~2021-08-07] VITALS: Ht 193 cm; Wt 204.1 kg
[~2021-08-07 09:37] MED LIST changes: +HOSPITAL BED MISCELL; +LIDOPATCH1 EACH TOP; +NEURONTIN 400400 M1 PO; +TRAMADOL 50 MG50 MG PO
[2021-08-07 09:44] VITALS: BP 108/78
[2021-08-07 10:07] LABS: ABSOLUTE BASOPHILS 0.1 thou/uL (0.0-0.2); ABSOLUTE EOSINOPHILS 0.4 thou/uL (0.0-0.7); ABSOLUTE LYMPHOCYTES 1.9 thou/uL (0.8-5.3); ABSOLUTE MONOCYTES 0.6 thou/uL (0.0-1.2); EOSINOPHILS 4.5 %; HEMATOCRIT 33.5 % (42.0-52.0); HEMOGLOBIN 10.7 gm/dL (14.0-18.0); LYMPHOCYTES 24.1 %; MCH 24.7 pg (26.0-34.0); MCHC 31.9 g/dL (28.0-37.0); MCV 77.3 fL (80.0-100.0); MONOCYTES 7.9 %; NUCLEATED RBCS 0 /100WBC; PLATELET COUNT* 305 thou/uL (150-400); POLYS 62.5 %; RBC 4.34 mil/uL (4.50-6.00); RDW-CV 17.9 % (10.5-14.5)
[2021-08-07 10:16] LABS: CALCIUM 9.9 mg/dL (8.5-10.1); CREATININE 1.1 mg/dL (0.6-1.3); POTASSIUM 3.4 mmol/L (3.5-5.1)
[2021-08-07 10:21] LABS: ALBUMIN 3.1 g/dL (3.4-5.0); TOTAL BILIRUBIN 0.7 mg/dL (<0.1-1.0)
--- NOTE | 2021-08-07 11:43 | EKG ---
[place] [address] ELECTROCARDIOGRAM REPORT Name: FLORENCIA GONSALEZ Room: [facility]#: [id number] Admission: 08/07/21 Attend Phys: Discharge: Date of : 63 Date of Service: 08/07/21 1003 Report #: [id number] THIS REPORT FOR: //name// [facility] ED Test Date: 2021-08-07 Test Time: 10:03:04 Pat Name: FLORENCIA GONSALEZ Department: Room: Gender: Feed Handler: : 1965 Requested By: Orestes Ratliff Order Number: [id number] MD: Mitchel Jones Measurements Intervals [place] Rate: 112 P: -78 [place]: 96 QRS: -42 QRSD: 119 T: 110 QT: 348 QTc: 475 Interpretive Statements Sinus or ectopic atrial tachycardia Atrial premature complexes Incomplete left bundle branch block Inferior infarct, old Compared to ECG 06/20/2021 10:08:34 Left bundle-branch block now present Myocardial infarct finding now present Sinus rhythm no longer present Electronically Signed On 08-07-2021 11:43:32 BUNDLE HELPER by Mitchel Jones [email or web address] <ELECTRONICALLY SIGNED> By: Mitchel Jones MD, FACC 08/07/21 1143 1003 1003 Mitchel Jones MD, FAC /EPI
[2021-08-07 16:07] VITALS: BP 168/87
[2021-08-07 18:22] VITALS: BP 123/76
[2021-08-08 08:30] VITALS: BP 147/87
[2021-08-08 16:00] VITALS: BP 119/72
[2021-08-09 08:05] VITALS: BP 138/67
[2021-08-09 16:08] VITALS: BP 125/79
[2021-08-09 21:10] VITALS: BP 118/52
[2021-08-10 08:20] VITALS: BP 123/71
[2021-08-10 17:59] VITALS: BP 112/70
[2021-08-10 20:00] VITALS: BP 119/70
[2021-08-11 04:52] LABS: ABSOLUTE EOSINOPHILS 0.4 thou/uL (0.0-0.7); ABSOLUTE LYMPHOCYTES 1.7 thou/uL (0.8-5.3); ABSOLUTE MONOCYTES 0.6 thou/uL (0.0-1.2); ABSOLUTE NEUTROPHILS 2.1 thou/uL (1.6-8.1); ALBUMIN 2.7 g/dL (3.4-5.0); BASOPHILS 0.7 %; CALCIUM 9.1 mg/dL (8.5-10.1); EOSINOPHILS 8.4 %; HEMATOCRIT 31.6 % (42.0-52.0); LYMPHOCYTES 35.7 %; MCH 25.1 pg (26.0-34.0); MCHC 31.7 g/dL (28.0-37.0); MCV 79.1 fL (80.0-100.0); MONOCYTES 12.1 %; MPV 7.5 fl. (7.2-11.1); NUCLEATED RBCS 0 /100WBC; PLATELET COUNT* 341 thou/uL (150-400); POLYS 43.1 %; POTASSIUM 3.3 mmol/L (3.5-5.1); RBC 3.99 mil/uL (4.50-6.00); RDW-CV 17.9 % (10.5-14.5); TOTAL BILIRUBIN 0.3 mg/dL (<0.1-1.0); TOTAL PROTEIN 7.2 g/dL (6.4-8.2); WBC 4.9 thou/uL (4.0-11.0)
[2021-08-11 08:00] VITALS: BP 116/69
[2021-08-11 16:03] VITALS: BP 119/63
[2021-08-11 20:00] VITALS: BP 123/73
[2021-08-12 08:00] VITALS: BP 123/65
[2021-08-12 16:01] VITALS: BP 128/75
[2021-08-13 08:00] VITALS: BP 148/77
[2021-08-13 15:53] VITALS: BP 122/76
[2021-08-13 20:00] VITALS: BP 105/60
[2021-08-14 08:30] VITALS: BP 111/79
[2021-08-14 16:00] VITALS: BP 109/68
[2021-08-14 19:50] VITALS: BP 108/63
[2021-08-15 09:15] VITALS: BP 131/78
[2021-08-15 20:00] VITALS: BP 132/70
[2021-08-16 07:45] VITALS: BP 114/66
[2021-08-16 15:50] VITALS: BP 104/51
[2021-08-16 19:00] VITALS: BP 132/75
[2021-08-17 08:13] VITALS: BP 115/72
[2021-08-17 16:33] VITALS: BP 139/87
[2021-08-17 20:27] VITALS: BP 130/75
[2021-08-18 08:00] VITALS: BP 130/74
[2021-08-18 15:30] VITALS: BP 114/73
[2021-08-19 07:40] LABS: ABSOLUTE EOSINOPHILS 0.3 thou/uL (0.0-0.7); ABSOLUTE LYMPHOCYTES 1.5 thou/uL (0.8-5.3); ABSOLUTE MONOCYTES 0.5 thou/uL (0.0-1.2); ABSOLUTE NEUTROPHILS 2.5 thou/uL (1.6-8.1); BASOPHILS 0.5 %; EOSINOPHILS 6.9 %; HEMATOCRIT 31.5 % (42.0-52.0); HEMOGLOBIN 9.8 gm/dL (14.0-18.0); LYMPHOCYTES 30.7 %; MCH 24.2 pg (26.0-34.0); MONOCYTES 9.3 %; MPV 7.6 fl. (7.2-11.1); NUCLEATED RBCS 0 /100WBC; PLATELET COUNT* 321 thou/uL (150-400); POLYS 52.6 %; RBC 4.04 mil/uL (4.50-6.00); RDW-CV 17.7 % (10.5-14.5); WBC 4.8 thou/uL (4.0-11.0)
[2021-08-19 07:51] LABS: ALBUMIN 2.6 g/dL (3.4-5.0); CALCIUM 9.2 mg/dL (8.5-10.1); CREATININE 0.9 mg/dL (0.6-1.3); POTASSIUM 3.4 mmol/L (3.5-5.1); TOTAL BILIRUBIN 0.3 mg/dL (<0.1-1.0)
[2021-08-19 08:31] VITALS: BP 119/71
[2021-08-19 16:00] VITALS: BP 113/64
[2021-08-20 08:00] VITALS: BP 108/76
[2021-08-20 16:00] VITALS: BP 125/69
[2021-08-20 19:30] VITALS: BP 128/72
[2021-08-21 08:00] VITALS: BP 128/68
[2021-08-21 16:52] VITALS: BP 119/79
[2021-08-21 21:15] VITALS: BP 113/68
[2021-08-22 04:08] LABS: HEMATOCRIT 31.8 % (42.0-52.0); MCH 24.1 pg (26.0-34.0); MCHC 31.3 g/dL (28.0-37.0); MPV 7.5 fl. (7.2-11.1); RBC 4.13 mil/uL (4.50-6.00); RDW-CV 17.7 % (10.5-14.5); WBC 5.7 thou/uL (4.0-11.0)
[2021-08-22 04:40] LABS: ALBUMIN 2.5 g/dL (3.4-5.0); CREATININE 0.8 mg/dL (0.6-1.3); MAGNESIUM 1.5 mg/dL (1.8-2.4); POTASSIUM 3.5 mmol/L (3.5-5.1); TOTAL BILIRUBIN 0.3 mg/dL (<0.1-1.0)
[2021-08-22 08:00] VITALS: BP 123/69
[2021-08-22 16:00] VITALS: BP 112/64
[2021-08-22 19:35] VITALS: BP 116/71
[2021-08-23 08:00] VITALS: BP 122/76
[2021-08-23 16:00] VITALS: BP 112/68
[2021-08-23 22:30] VITALS: BP 121/60
[2021-08-24 08:30] VITALS: BP 107/61
[2021-08-24 16:00] VITALS: BP 119/81
[2021-08-24 21:00] VITALS: BP 112/66
[2021-08-25 08:00] VITALS: BP 125/71
[2021-08-25 16:00] VITALS: BP 127/65
[2021-08-25 20:30] VITALS: BP 129/70
[2021-08-26 08:00] VITALS: BP 138/64
[2021-08-26 15:39] VITALS: BP 138/64
== END 2021-08-26 17:59 | DRG 862 ==
LOC: M.ERS 09:37 → M.TBA-ER 12:11 → M.3W 12:11
PROVIDERS: Emergency Medicine Emergency Medical Services; Internal Medicine; ADMIT Internal Medicine; ATTEND Internal Medicine
PROC: 5A09357 Assistance with Respiratory Ventilation, Less than 24 Consecutive Hours, Continuous Positive Airway Pressure (ICD-10-PCS; principal; 2021-08-10)
PROC: 5A09357 Assistance with Respiratory Ventilation, Less than 24 Consecutive Hours, Continuous Positive Airway Pressure (ICD-10-PCS; 2021-08-11)
PROC: 5A09357 Assistance with Respiratory Ventilation, Less than 24 Consecutive Hours, Continuous Positive Airway Pressure (ICD-10-PCS; 2021-08-14)
PROC: 5A09357 Assistance with Respiratory Ventilation, Less than 24 Consecutive Hours, Continuous Positive Airway Pressure (ICD-10-PCS; 2021-08-15)
PROC: 5A09357 Assistance with Respiratory Ventilation, Less than 24 Consecutive Hours, Continuous Positive Airway Pressure (ICD-10-PCS; 2021-08-16)
PROC: 5A09357 Assistance with Respiratory Ventilation, Less than 24 Consecutive Hours, Continuous Positive Airway Pressure (ICD-10-PCS; 2021-08-17)
PROC: 5A09357 Assistance with Respiratory Ventilation, Less than 24 Consecutive Hours, Continuous Positive Airway Pressure (ICD-10-PCS; 2021-08-18)
PROC: 5A09357 Assistance with Respiratory Ventilation, Less than 24 Consecutive Hours, Continuous Positive Airway Pressure (ICD-10-PCS; 2021-08-19)
PROC: 5A09357 Assistance with Respiratory Ventilation, Less than 24 Consecutive Hours, Continuous Positive Airway Pressure (ICD-10-PCS; 2021-08-20)
PROC: 5A09357 Assistance with Respiratory Ventilation, Less than 24 Consecutive Hours, Continuous Positive Airway Pressure (ICD-10-PCS; 2021-08-23)
PROC: 5A09357 Assistance with Respiratory Ventilation, Less than 24 Consecutive Hours, Continuous Positive Airway Pressure (ICD-10-PCS; 2021-08-24)
PROC: 5A09357 Assistance with Respiratory Ventilation, Less than 24 Consecutive Hours, Continuous Positive Airway Pressure (ICD-10-PCS; 2021-08-25)
DX: T81.43XA Infection following a procedure, organ and space surgical site, initial encounter (principal); A41.9 Sepsis, unspecified organism; J96.90 Respiratory failure, unspecified, unspecified whether with hypoxia or hypercapnia; S82.001A Unspecified fracture of right patella, initial encounter for closed fracture; N17.9 Acute kidney failure, unspecified; Z68.43 Body mass index [BMI] 50.0-59.9, adult; M00.9 Pyogenic arthritis, unspecified; E44.1 Mild protein-calorie malnutrition; E66.01 Morbid (severe) obesity due to excess calories; W06.XXXA Fall from bed, initial encounter; R41.0 Disorientation, unspecified; E78.5 Hyperlipidemia, unspecified; R29.6 Repeated falls; I48.91 Unspecified atrial fibrillation; R53.81 Other malaise; M25.512 Pain in left shoulder; G89.29 Other chronic pain; E83.42 Hypomagnesemia; D64.9 Anemia, unspecified; G47.33 Obstructive sleep apnea (adult) (pediatric); R26.9 Unspecified abnormalities of gait and mobility; M54.9 Dorsalgia, unspecified; Z20.822 Contact with and (suspected) exposure to COVID-19; Y93.84 Activity, sleeping; Y92.003 Bedroom of unspecified non-institutional (private) residence as the place of occurrence of the external cause; Y99.8 Other external cause status; Z79.899 Other long term (current) drug therapy; Z82.49 Family history of ischemic heart disease and other diseases of the circulatory system; Y83.8 Other surgical procedures as the cause of abnormal reaction of the patient, or of later complication, without mention of misadventure at the time of the procedure